=== PATIENT | female | born 1985 | race Hispanic/Latino ===

== ENCOUNTER → 2019-09-21 12:17 | Outpatient (CLI) | payer OTHER, SELFPAY ==
[2019-09-21 12:53] LABS: Hematocrit 38.4 % (36-46); Hemoglobin 13.2 g/dL (12.0-16.0); Mean Corpuscular HGB Conc 34.4 % (30-36); Mean Corpuscular Hemoglobin 26.3 PG (26-34); Mean Corpuscular Volume 76.3 fL (80-100); Platelet Count 411 X10^3/uL (150-400); Red Blood Cell Count 5.04 X10^6/uL (4.0-5.2); Red Cell Distribution Width 15.3 % (11.6-14.8); White Blood Cell Count 7.2 X10^3/uL (4.5-11.0)
[2019-09-21 13:38] LABS: Alanine Aminotransferase 52 IU/L (<35); Albumin 4.7 g/dL (3.5-5.0); Albumin Globulin Ratio 1.3 (1.0-2.8); Alkaline Phosphatase 120 U/L (38-126); Aspartate Aminotransferase 59 IU/L (14-36); BUN Creatinine Ratio 21.7 (6-22); Bilirubin Total 0.6 mg/dL (0.2-1.3); Blood Urea Nitrogen 13 mg/dL (7-17); Calcium 10.2 mg/dL (8.4-10.2); Carbon Dioxide 27 mmol/L (22-32); Chloride 100 mmol/L (98-107); Cholesterol 264 mg/dL (140-199); Estimated Glomerular Filt Rate > 60.0 mL/min (>60); Globulin 3.5 g/dL (1.7-4.1); Glucose 206 mg/dL (70-100); HDL Cholesterol 46 mg/dL (40-60); HEMOLYSIS < 15 (0-50); LDL Cholesterol Calculated 184 mg/dL (<100); Potassium 4.3 mmol/L (3.4-5.1); Sodium 139 mmol/L (137-145); Total Protein 8.2 g/dL (6.3-8.2); Triglycerides 170 mg/dL (35-150)
[2019-09-21 14:10] LABS: TSH w/ Reflex to FT4 3.29 uIU/mL (0.47-4.68)
== END ==
PROVIDERS: PCP Nurse Practitioner Family; Visit Provider Nurse Practitioner Family
DX: Z00.00 Encounter for general adult medical examination without abnormal findings (principal); Z13.6 Encounter for screening for cardiovascular disorders; F41.9 Anxiety disorder, unspecified
CPT/HCPCS: 36415; 80053; 80061; 84443; 85027

== ENCOUNTER → 2019-10-27 11:55 | Outpatient (CLI) | payer OTHER, SELFPAY | PROVIDERS: PCP Nurse Practitioner Family; Visit Provider Nurse Practitioner Family | DX: N89.8 Other specified noninflammatory disorders of vagina (principal); R10.2 Pelvic and perineal pain | CPT/HCPCS: 87210 ==

== ENCOUNTER → 2019-10-27 12:08 | Outpatient (CLI) | payer OTHER, SELFPAY ==
[2019-10-27 12:44] LABS: Hemoglobin 12.9 g/dL (12.0-16.0); Mean Corpuscular HGB Conc 33.2 % (30-36); Mean Corpuscular Hemoglobin 25.5 PG (26-34); Mean Corpuscular Volume 76.8 fL (80-100); Platelet Count 440 X10^3/uL (150-400); Red Blood Cell Count 5.08 X10^6/uL (4.0-5.2); Red Cell Distribution Width 16.3 % (11.6-14.8); White Blood Cell Count 8.1 X10^3/uL (4.5-11.0)
[2019-10-27 12:55] LABS: Hemoglobin A1C% w Est Avg Glu 8.7 % (4.0-6.0)
[2019-10-27 13:27] LABS: Alanine Aminotransferase 46 IU/L (<35); Albumin 4.5 g/dL (3.5-5.0); Albumin Globulin Ratio 1.3 (1.0-2.8); Alkaline Phosphatase 128 U/L (38-126); Aspartate Aminotransferase 45 IU/L (14-36); Bilirubin Total 0.3 mg/dL (0.2-1.3); Bilirubin Unconjugated 0.2 mg/dL (0.0-1.1); Globulin 3.5 g/dL (1.7-4.1); HEMOLYSIS < 15 (0-50)
[2019-10-31 07:17] LABS: ANA Screen, IFA NEGATIVE (NEGATIVE)
[2019-10-31 08:33] LABS: Hepatitis A Antibody IgM NONREACTIVE; Hepatitis Acute Panel Interp 0.01; Hepatitis B Core Antibody IgM NONREACTIVE; Hepatitis B Surface Antigen NONREACTIVE; Hepatitis C Antibody NONREACTIVE
== END ==
PROVIDERS: PCP Nurse Practitioner Family; Referring Provider Nurse Practitioner Family; Visit Provider Nurse Practitioner Family
DX: R94.5 Abnormal results of liver function studies (principal); R71.8 Other abnormality of red blood cells; R73.01 Impaired fasting glucose; N89.8 Other specified noninflammatory disorders of vagina; R10.2 Pelvic and perineal pain
CPT/HCPCS: 36415; 80074; 80076; 83036; 85027; 86038; 86255; 87210

== ENCOUNTER → 2019-11-16 13:44 | Outpatient (CLI) | payer OTHER, SELFPAY ==
--- NOTE | 2019-11-16 13:46 | DI.US.S_ITS ---
PROCEDURE: US ABDOMEN COMPLETE INDICATIONS: ELEVATED LIVER ENZYMES TECHNIQUE: Real-time scanning was performed of the abdominal and retroperitoneal organs, with image documentation. COMPARISON: None. FINDINGS: This study is limited by body habitus. Liver: The liver demonstrates normal size. The liver demonstrates generalized increased echogenicity. This decreases ultrasound sensitivity for detection of hepatic masses. Gallbladder: No findings of gallstones or sludge are seen. The gallbladder wall is not thickened, measuring 3 mm or less. No specific pericholecystic fluid is seen. The sonographic Duarte sign is negative. Biliary ducts: Intrahepatic bile ducts are non-dilated. Extrahepatic bile duct caliber measures 5 mm. Normal is 6-7 mm or less in diameter, or 10 mm or less post-cholecystectomy. Pancreas: Visualized portions of the pancreas are sonographically normal. Spleen: Spleen is normal in size and homogeneous in echotexture. Kidneys: Kidneys are normal in size and echotexture. Right kidney measures 11.7 cm long; left kidney measures 9.9 cm long. No hydronephrosis. Within the inferior collecting system on the left, there is a 6 mm nonobstructing renal stones seen. No solid masses. Aorta: Visualized aorta is normal in caliber at less than 3 cm. Iliacs: Proximal common iliac arteries are normal in caliber at less than 2.5 cm. IVC: Intrahepatic inferior vena cava is patent. Miscellaneous: No free abdominal fluid. IMPRESSION: Fatty liver infiltration. The gallbladder demonstrates a normal sonographic appearance. No biliary dilatation is seen. 6 mm nonobstructing left inferior renal stone seen. Dictated by: Marshall Lugo M.D. on 11/16/2019 at 14:36 Approved by: Marshall Lugo M.D. on 11/16/2019 at 14:37
== END ==
PROVIDERS: PCP Nurse Practitioner Family; Referring Provider Nurse Practitioner Family; Visit Provider Nurse Practitioner Family
DX: R94.5 Abnormal results of liver function studies (principal); N20.0 Calculus of kidney
CPT/HCPCS: 76700

== ENCOUNTER → 2019-12-01 10:44 | Outpatient (CLI) | payer OTHER, SELFPAY ==
--- NOTE | 2019-12-01 | DI.CT.S_ITS ---
PROCEDURE: CT ABDOMEN PELVIS WO CON INDICATIONS: KIDNEY STONES. RIGHT FLANK PAIN TECHNIQUE: Noncontrast 5 mm thick sections acquired from the diaphragms to the symphysis. 5 mm thick coronal and sagittal reformats were then performed. For radiation dose reduction, the following was used: automated exposure control, adjustment of mA and/or kV according to patient size. COMPARISON: [facility], , US ABDOMEN COMPLETE, 11/16/2019, 14:01. FINDINGS: Image quality: Excellent. Lung bases: Lung bases are clear. Heart size is normal. A small hiatal hernia is incidentally noted. Urinary system: Both kidneys are normal in size. No kidney stones. No hydronephrosis or perinephric fat stranding. Both ureters appear non-dilated throughout their expected courses. Bladder wall thickness is normal; no calcified bladder stones. Other solid organs: Liver is normal in size. Diffuse fatty liver infiltration is noted. Gallbladder wall does not appear thickened. Pancreas is normal in contours. Spleen is normal in size. No adrenal nodules. Peritoneum and bowel: Unenhanced bowel loops demonstrate normal wall thickness and caliber. No free fluid or air. Incidental note is made of a normal-appearing appendix. Nodes and vessels: No retroperitoneal or mesenteric adenopathy by size criteria. Aorta and inferior vena cava are normal in caliber. Abdominal wall: No ventral hernias. Pelvis: No free pelvic fluid. No inguinal hernias or adenopathy. The uterus and ovaries demonstrate a normal, physiologic appearance. No adnexal masses are detected. Bones: No suspicious bony lesions. No vertebral body compression fractures. This patient has transitional lumbar anatomy. For the purposes of this examination, the level with the last pair of ribs is regarded to be T12. By this numbering scheme, the L5 level is transitional and highly sacralized. IMPRESSION: No kidney stones can be seen. The apparent left-sided kidney stones seen on the prior ultrasound are not confirmed on this study. The ultrasound appearance is regarded to be artifactual. No hydronephrosis or hydroureter can be seen on either side. Incidental note is made of: Small hiatal hernia Fatty liver infiltration Normal appearing appendix Transitional lumbar anatomy, with a highly sacralized L5 level Dictated by: Marshall Lugo M.D. on 12/01/2019 at 10:04 Approved by: Marshall Lugo M.D. on 12/01/2019 at 10:08
== END ==
PROVIDERS: PCP Nurse Practitioner Family; Referring Provider Specialist; Visit Provider Specialist
DX: N20.0 Calculus of kidney (principal); R10.9 Unspecified abdominal pain; K44.9 Diaphragmatic hernia without obstruction or gangrene; K76.0 Fatty (change of) liver, not elsewhere classified; M43.26 Fusion of spine, lumbar region
CPT/HCPCS: 74176

== ENCOUNTER → 2020-01-26 08:20 | Outpatient (CLI) | payer OTHER, SELFPAY ==
[2020-01-26 09:20] LABS: Hemoglobin A1C% w Est Avg Glu 6.9 % (4.0-6.0)
[2020-01-26 09:28] LABS: Hemoglobin 11.9 g/dL (12.0-16.0); Mean Corpuscular Hemoglobin 25.4 PG (26-34); Mean Corpuscular Volume 76.9 fL (80-100); Platelet Count 377 X10^3/uL (150-400); Red Blood Cell Count 4.68 X10^6/uL (4.0-5.2); Red Cell Distribution Width 15.7 % (11.6-14.8); White Blood Cell Count 5.8 X10^3/uL (4.5-11.0)
== END ==
PROVIDERS: PCP Nurse Practitioner Family; Referring Provider Obstetrics & Gynecology; Visit Provider Obstetrics & Gynecology
DX: Z01.818 Encounter for other preprocedural examination (principal); E11.9 Type 2 diabetes mellitus without complications
CPT/HCPCS: 36415; 83036; 85027

== ENCOUNTER → 2020-01-31 15:00 | Outpatient (CLI) | payer OTHER, SELFPAY ==
[2020-02-01 10:59] LABS: COVID19 Sendout Not Detected (Not Detect)
== END ==
PROVIDERS: PCP Nurse Practitioner Family; Visit Provider Registered Nurse
DX: Z01.812 Encounter for preprocedural laboratory examination (principal)
CPT/HCPCS: 87635

== ENCOUNTER 2020-02-03 06:33 | Day surgery (SDC) | payer OTHER, SELFPAY ==
[2020-01-31 10:20] VITALS: BMI 34.2
[2020-02-03] VITALS (8 sets, daily range): BP systolic 97–116; BP diastolic 58–76; PULSE 87–95; RESP 10–20; TEMP 36–36.1; O2SAT 94–100; BMI 34.2
--- NOTE | 2020-02-03 | PATH_ITS ---
[facility] Accession Number: [id number] . 01 Material submitted: . PART A: cervix - ECTO-ENDOCERVIX PART B: endocervix - ENDOCERVICAL CURETTINGS . 02 Diagnosis: A. Ecto-Endocervix, LEEP Biopsy: One small region of atypical squamous mucosa concerning for possible high grade squamous intraepithelial lesion / THAIS-2 and separate regions of mild involvement by low-grade squamous intraepithelial lesion/THAIS-1. The apparent endocervical margin is negative for dysplasia. The apparent ectocervical margin is negative for dysplasia. No invasive tumor identified. . B. Endocervical Curettings: Endocervical tissue fragments; negative for glandular dysplasia or malignancy. [facility] 02/07/2020 1427 Local . 02 Comment: The biopsy results correlate with Pap smear [id number]. . 02 Electronically signed: . Jyoti Pitts MD, Pathologist NPI- [id number] . 01 Gross description: . (A) Received in formalin, labeled ecto-endocervix, is an intact unoriented cervical excision (diameter-2.0 x 1.6 cm, 0.6 cm in depth) with wheeler-white smooth shiny mucosa. No nodules, masses or lesions are identified. The possible endocervical margin is inked orange and the possible ectocervical and stromal margins are inked blue. Radially sectioned and entirely submitted in cassettes A1-A4. (B) Received in formalin, labeled endocervical curettings, are multiple fragments of wheeler tissue (0.7 x 0.3 by less than 0.1 cm in aggregate). Filtered and entirely submitted in cassette B1. ([place]:[facility] [place] [id number]) /MRV 02/04/2020 1118 Local . 02 Pathologist provided ICD-10: N87.1 . 02 CPT . 728504, 474117 Performed at: 01 [facility] [address] [id number] MD Vinnie Khan MD Phone: [phone] Performed at: 02 [facility] [address] [place], [place] [id number] MD Alysia Price MD Phone: [phone]
[2020-02-03] MEDS: LACTATED RINGERS 1,000 ML 42 ML IV (07:19)
--- NOTE | 2020-02-03 07:30 | SUR.PREOP ---
Pt voided, unable to do urine preg test, anesthesia informed, Pt denies any risk of
--- NOTE | 2020-02-03 07:42 | PM.PREOP ---
Pre-operative Note COVID-19 COVID-19 status: Negative Result date/Date tested (Pos, Neg/Pending): 01/31/20 Interval Note History & Physical reviewed/Exam performed by Physician: Yes Changes to H&P: No
--- NOTE | 2020-02-03 08:13 | SUR.OPER ---
Lithotomy on padded OR bed, head on pillow, arms secured on padded arm boards at <90 degrees abduction. Legs secured in padded yellow fins stirrups.
[2020-02-03] MEDS: LIDOCAINE 1% W/EPI 20 ML INJ (08:18)
[2020-02-03] MEDS: ACETIC ACID 500 ML IRRIG 20 ML TOP (08:20)
--- NOTE | 2020-02-03 08:53 | SUR.OPER ---
Jazmin's applied to cerviix per Dr. Linda at end of case.
--- NOTE | 2020-02-03 08:59 | PM.OP.1 ---
Operative Date/Time/Diagnoses Date of procedure: 02/03/20 Time of procedure: 08:45 Pre-op diagnosis: THAIS 3 of cervix Post-op diagnosis: same Procedure & Clinicians Procedure: colposcopy, LEEP procedure of cervix Same procedure as scheduled: Yes Indications: THAIS 3 of cervix Surgeon: Fatimah Linda Click Yes if Unassisted: Yes Anesthesia Type: General Operative Notes Closure Type: not applicable Specimen(s): other (ecto/endoervical specimen) Estimated Blood Loss (mL): 3 Procedure in detail: IV fluids: 900 ml crystalloid She was transferred to the operating room. After an adequate level of general anesthesia was obtained, she placed service in the dorsal lithotomy position. Time-out was taken and the patient procedure was identified. Normal external genitalia noted. Speculum was placed. Colposcope used and vagina and cervix visualized. Vagina without lesions. Cervix without lesions or gross abnormalities. Dilute acetic acid placed to the cervix and upper vagina. There were no vaginal changes with the acetic acid. There was an irregular area of mild aceto-white change with irregular borders and slight punctation at 11:00 a.m. near the cervical os extending onto the ectocervix. There was also some mild aceto-white change with faint punctation from 5-8 o'clock at the cervical os in the transformation zone and some increased redness extending from this area on the ectocervix. An Allis was placed to the anterior cervix for counter traction. Approximately 10 mL of 1% lidocaine with epinephrine was circumferentially infiltrated over the cervix. The Allis clamp was then removed. A 20 mm x 10 mm loop was then placed on the Bovie and with the settings on 60 pure cut a pass was made from from right to left, through the anterior and posterior ectocervix passing through the cervical os, to include the entire visualized area. ECC then performed and sent as separate specimen. Using a 5 mm ball tip on the Bovie and settings on the Bovie changed to coagulation, a few areas of light bleeding were coagulated. Hemostasis obtained. A paste of Monsel's solution was then placed in the excisional bed to help assure continued hemostasis. She tolerated the procedure well. Complications: none Post-operative Condition: stable Disposition: PACU Plan for aftercare: Discharge home. Nothing in the vagina for 3 weeks. Follow-up appt in 3 weeks
== END 2020-02-03 09:35 | disposition home or self-care (01) ==
PROVIDERS: PCP Nurse Practitioner Family; Referring Provider Nurse Practitioner Family; Visit Provider Obstetrics & Gynecology
PROC: 0UBC7ZZ Excision of Cervix, Via Natural or Artificial Opening (ICD-10-PCS; CPT 57522; principal; 2020-02-03 07:45)
DX: N87.1 Moderate cervical dysplasia (principal); E11.9 Type 2 diabetes mellitus without complications; Z79.84 Long term (current) use of oral hypoglycemic drugs; E78.5 Hyperlipidemia, unspecified; K21.9 Gastro-esophageal reflux disease without esophagitis; F41.9 Anxiety disorder, unspecified; G47.00 Insomnia, unspecified
CPT/HCPCS: 57460; J1885; J2250; J2405; J2704; J3010

== ENCOUNTER → 2020-02-08 10:53 | Outpatient (CLI) | payer OTHER, SELFPAY ==
[2020-02-08 11:46] LABS: Add Manual Diff / Slide Review NO; Basophils Absolute Auto 100 /uL (0-100); Basophils Percent Auto 1.1 % (0-2); Eosinophils Absolute Auto 200 /uL (0-450); Eosinophils Percent Auto 2.9 % (2-4); Hematocrit 35.6 % (36-46); Hemoglobin 11.9 g/dL (12.0-16.0); Lymphocytes Absolute Auto 1000 /uL (1100-4500); Lymphocytes Percent Auto 16.7 % (25-40); Mean Corpuscular HGB Conc 33.4 % (30-36); Mean Corpuscular Hemoglobin 25.3 PG (26-34); Mean Corpuscular Volume 75.7 fL (80-100); Monocytes Absolute Auto 600 /uL (0-900); Monocytes Percent Auto 10.2 % (3-14); Neutrophils Absolute Auto 4300 /uL (1500-7000); Neutrophils Percent Auto 69.1 % (50-75); Platelet Count 364 X10^3/uL (150-400); Red Cell Distribution Width 15.3 % (11.6-14.8); White Blood Cell Count 6.2 X10^3/uL (4.5-11.0)
[2020-02-08 12:02] LABS: Alanine Aminotransferase 43 IU/L (<35); Albumin 4.5 g/dL (3.5-5.0); Albumin Globulin Ratio 1.3 (1.0-2.8); Alkaline Phosphatase 82 U/L (38-126); Aspartate Aminotransferase 41 IU/L (14-36); BUN Creatinine Ratio 16.1 (6-22); Bilirubin Total 0.6 mg/dL (0.2-1.3); Blood Urea Nitrogen 9 mg/dL (7-17); Calcium 9.8 mg/dL (8.4-10.2); Carbon Dioxide 23 mmol/L (22-32); Chloride 104 mmol/L (98-107); Estimated Glomerular Filt Rate > 60.0 mL/min (>60); Globulin 3.6 g/dL (1.7-4.1); Glucose 120 mg/dL (70-100); HEMOLYSIS < 15 (0-50); Sodium 137 mmol/L (137-145); Total Protein 8.1 g/dL (6.3-8.2)
== END ==
PROVIDERS: PCP Nurse Practitioner Family; Referring Provider Obstetrics & Gynecology; Visit Provider Obstetrics & Gynecology
DX: R11.2 Nausea with vomiting, unspecified (principal)
CPT/HCPCS: 36415; 80053; 85025

== ENCOUNTER → 2020-12-07 10:47 | Outpatient (CLI) | payer OTHER, SELFPAY ==
[2020-12-07 11:33] LABS: Alanine Aminotransferase 113 IU/L (<35); Albumin 4.5 g/dL (3.5-5.0); Albumin Globulin Ratio 1.1 (1.0-2.8); Alkaline Phosphatase 127 U/L (38-126); Aspartate Aminotransferase 93 IU/L (14-36); BUN Creatinine Ratio 24.1 (6-22); Bilirubin Total 0.2 mg/dL (0.2-1.3); Blood Urea Nitrogen 13 mg/dL (7-17); Calcium 9.9 mg/dL (8.4-10.2); Carbon Dioxide 24 mmol/L (22-32); Chloride 103 mmol/L (98-107); Cholesterol 275 mg/dL (140-199); Estimated Glomerular Filt Rate > 60.0 mL/min (>60); Glucose 245 mg/dL (70-100); HDL Cholesterol 50 mg/dL (40-60); HEMOLYSIS < 15 (0-50); LDL Cholesterol Calculated 192 mg/dL (<100); Sodium 137 mmol/L (137-145); Total Protein 8.5 g/dL (6.3-8.2); Triglycerides 163 mg/dL (35-150)
[2020-12-07 11:54] LABS: Hematocrit 41.2 % (36-46); Hemoglobin 13.5 g/dL (12.0-16.0); Mean Corpuscular HGB Conc 32.9 % (30-36); Mean Corpuscular Hemoglobin 25.9 PG (26-34); Mean Corpuscular Volume 78.8 fL (80-100); Platelet Count 451 X10^3/uL (150-400); Red Blood Cell Count 5.24 X10^6/uL (4.0-5.2); Red Cell Distribution Width 15.6 % (11.6-14.8); White Blood Cell Count 7.4 X10^3/uL (4.5-11.0)
[2020-12-07 12:21] LABS: Hemoglobin A1C% w Est Avg Glu 8.8 % (4.0-6.0)
[2020-12-07 13:08] LABS: Appearance Urine UA CLEAR; Bilirubin Urine UA NEGATIVE (NEGATIVE); Color Urine UA YELLOW; Glucose Urine UA NEGATIVE (Negative); Ketones Urine UA TRACE (NEGATIVE); Leukocyte Esterase Urine UA NEGATIVE (NEGATIVE); Nitrite Urine UA NEGATIVE (Negative); Occult Blood Urine UA TRACE-LYSED (Negative); Protein Urine UA TRACE (Negative); Specific Gravity Urine UA >=1.030 (1.000-1.035); Urobilinogen Urine UA 0.2 E.U./dL (0.2)
[2020-12-07 13:19] LABS: pH Urine UA 5.5 (4.5-8.0)
[2020-12-07 13:45] LABS: Amorphous Sediment Urine 1+; Bacteria Urine Few (2-10); Culture Indicated Urine Cult Not Indicated; Mucus Urine 1+ (Negative); RBC Urine 0-1/HPF (0-5/HPF); Squamous Epithelial Cell Urine 1-5 /HPF (0-5/HPF); WBC Urine 0-1/HPF (0-5/HPF)
== END ==
PROVIDERS: PCP Nurse Practitioner Family; Referring Provider Nurse Practitioner Family; Visit Provider Nurse Practitioner Family
DX: Z00.00 Encounter for general adult medical examination without abnormal findings (principal); E11.9 Type 2 diabetes mellitus without complications; E78.2 Mixed hyperlipidemia; R79.89 Other specified abnormal findings of blood chemistry; R10.30 Lower abdominal pain, unspecified
CPT/HCPCS: 36415; 80053; 80061; 81001; 83036; 85027

== ENCOUNTER → 2020-12-14 09:04 | Outpatient (CLI) | payer OTHER, SELFPAY ==
--- NOTE | 2020-12-14 09:05 | DI.US.S_ITS ---
PROCEDURE: US PELVIC COMPLETE INDICATIONS: PAIN TECHNIQUE: Real-time scanning was performed of the pelvic organs, with image documentation. Additional endovaginal scanning was necessary due to incomplete visualization of the adnexal and endometrial structures by transabdominal scanning. COMPARISON: None. FINDINGS: Uterus: Uterus is anteverted and normal in size at 4.1 x 5.1 x 8.5 cm. The endometrium measures 6.4 mm in combined thickness. Ovaries: Appear normal in size and echotexture. Other: No pathologic free abdominal or pelvic fluid. IMPRESSION: No source of pain is identified. Anteverted uterus, normal endometrial lining thickness. Ovaries free of cystic or solid mass or abnormal enlargement. Dictated by: Jesus Mukherjee M.D. on 12/14/2020 at 12:12 Approved by: Jesus Mukherjee M.D. on 12/14/2020 at 12:13
[2020-12-14 13:07] LABS: HEMOLYSIS < 15 (0-50); Iron 47 ug/dL (37-170)
[2020-12-14 13:18] LABS: Percent Iron Saturation 13 % (15-50); Total Iron Binding Capacity 364 ug/dL (265-497); Transferrin 311 mg/dL (206-381)
[2020-12-14 13:40] LABS: TSH w/ Reflex to FT4 2.21 uIU/mL (0.47-4.68)
[2020-12-14 13:43] LABS: Ferritin 62 ng/mL (6-137)
[2020-12-14 13:57] LABS: Vitamin B12 982 pg/mL (239-931)
[2020-12-18 17:12] LABS: Albumin 3.4 g/dL (2.9-4.4); Alpha 1 Globulin 0.3 g/dL (0.0-0.4); Alpha 2 Globulin 1.1 g/dL (0.4-1.0); Beta 1 Globulin 1.4 g/dL (0.7-1.3); Gamma Globulin 1.3 g/dL (0.4-1.8); Immunoglobulin A 324 mg/dL (87-352); Immunoglobulin G 1231 mg/dL (586-1602); Immunoglobulin M 101 mg/dL (26-217); Protein, Total 7.5 g/dL (6.0-8.5)
--- NOTE | 2021-01-08 14:43 | ONC.MSW ---
Description: New Referral Navigation Reason for Referral: Abnormality of plasma protein, unspecified Activity: Reviewed EMR, referral, for medical status, acuity, and immediate needs. Forwarded to scheduling for next available consult time, non-urgent.
== END ==
PROVIDERS: PCP Nurse Practitioner Family; Referring Provider Nurse Practitioner Family; Visit Provider Nurse Practitioner Family
DX: R10.2 Pelvic and perineal pain (principal); N85.4 Malposition of uterus; R71.8 Other abnormality of red blood cells; R79.89 Other specified abnormal findings of blood chemistry; R53.83 Other fatigue; R77.9 Abnormality of plasma protein, unspecified; K76.0 Fatty (change of) liver, not elsewhere classified; R74.8 Abnormal levels of other serum enzymes
CPT/HCPCS: 36415; 76830; 76856; 82607; 82728; 83540; 83550; 83915; 84155; 84165; 84443

== ENCOUNTER → 2021-01-18 10:53 | Outpatient (CLI) | payer OTHER, SELFPAY ==
[2021-01-18 10:58] LABS: Bacteria Urine None Seen; RBC Urine None Seen (0-5/HPF); WBC Urine None Seen (0-5/HPF)
[2021-01-18 11:59] LABS: Erythrocyte Sedimentation Rate 10 MM/HR (0-20)
[2021-01-18 12:08] LABS: HEMOLYSIS < 15 (0-50); Iron 45 ug/dL (37-170)
[2021-01-18 12:16] LABS: Appearance Urine UA CLEAR; Bilirubin Urine UA NEGATIVE (NEGATIVE); Color Urine UA YELLOW; Glucose Urine UA TRACE g/dL (Negative); Ketones Urine UA NEGATIVE (NEGATIVE); Leukocyte Esterase Urine UA NEGATIVE (NEGATIVE); Nitrite Urine UA NEGATIVE (Negative); Occult Blood Urine UA NEGATIVE (Negative); Protein Urine UA NEGATIVE (Negative); Specific Gravity Urine UA >=1.030 (1.000-1.035); Urobilinogen Urine UA 0.2 E.U./dL (0.2)
[2021-01-18 12:19] LABS: Percent Iron Saturation 12 % (15-50); Total Iron Binding Capacity 361 ug/dL (265-497); Transferrin 300 mg/dL (206-381)
[2021-01-18 12:28] LABS: Amorphous Sediment Urine 1+
[2021-01-18 12:41] LABS: Ferritin 21 ng/mL (6-137)
[2021-01-18 16:32] LABS: Hepatitis B Surface Antigen NEGATIVE s/c (NEGATIVE)
[2021-01-18 16:42] LABS: Hep C Virus Ab w/Reflex Quant NEGATIVE s/c (NEGATIVE)
[2021-01-19 04:09] LABS: Alpha 1 Anti Trypsin 141 mg/dL (100-188); Ceruloplasmin 34.6 mg/dL (19.0-39.0)
[2021-01-20 14:14] LABS: ANA Screen, IFA Negative (.)
[2021-01-20 14:45] LABS: Smooth Muscle Antibody 27 Units (0-19)
== END ==
PROVIDERS: PCP Nurse Practitioner Family; Referring Provider Internal Medicine Gastroenterology; Visit Provider Internal Medicine Gastroenterology
DX: R74.01 Elevation of levels of liver transaminase levels (principal); R80.9 Proteinuria, unspecified
CPT/HCPCS: 36415; 81001; 82103; 82390; 82728; 83516; 83540; 83550; 85651; 86038; 86803; 87340

== ENCOUNTER → 2021-06-19 15:02 | Outpatient (CLI) | payer OTHER, SELFPAY ==
[2021-06-19 15:33] LABS: Hematocrit 41.8 % (36-46); Hemoglobin 13.7 g/dL (12.0-16.0); Mean Corpuscular HGB Conc 32.8 % (30-36); Mean Corpuscular Hemoglobin 25.5 PG (26-34); Mean Corpuscular Volume 77.5 fL (80-100); Platelet Count 390 X10^3/uL (150-400); Red Blood Cell Count 5.39 X10^6/uL (4.0-5.2); Red Cell Distribution Width 15.7 % (11.6-14.8); White Blood Cell Count 8.2 X10^3/uL (4.5-11.0)
[2021-06-19 15:59] LABS: Alanine Aminotransferase 106 IU/L (<35); Albumin 4.6 g/dL (3.5-5.0); Albumin Globulin Ratio 1.2 (1.0-2.8); Alkaline Phosphatase 120 U/L (38-126); Aspartate Aminotransferase 84 IU/L (14-36); BUN Creatinine Ratio 18.8 (6-22); Bilirubin Total 0.3 mg/dL (0.2-1.3); Blood Urea Nitrogen 9 mg/dL (7-17); Calcium 9.9 mg/dL (8.4-10.2); Carbon Dioxide 25 mmol/L (22-32); Chloride 101 mmol/L (98-107); Estimated Glomerular Filt Rate > 60.0 mL/min (>60); Globulin 3.7 g/dL (1.7-4.1); Glucose 283 mg/dL (70-100); HEMOLYSIS < 15 (0-50); Potassium 4.1 mmol/L (3.4-5.1); Sodium 135 mmol/L (137-145); Total Protein 8.3 g/dL (6.3-8.2)
[2021-06-19 16:11] LABS: Hemoglobin A1C% w Est Avg Glu 9.7 % (4.0-6.0)
== END ==
PROVIDERS: PCP Nurse Practitioner Family; Referring Provider Nurse Practitioner Family; Visit Provider Nurse Practitioner Family
DX: E11.9 Type 2 diabetes mellitus without complications (principal)
CPT/HCPCS: 36415; 80053; 83036; 85027

== ENCOUNTER → 2022-01-15 16:41 | Outpatient (CLI) | payer OTHER, SELFPAY ==
[2022-01-15 17:49] LABS: Hemoglobin A1C% w Est Avg Glu 11.8 % (4.0-6.0)
[2022-01-15 17:51] LABS: Alanine Aminotransferase 63 IU/L (<35); Albumin 4.7 g/dL (3.5-5.0); Albumin Globulin Ratio 1.1 (1.0-2.8); Alkaline Phosphatase 128 U/L (38-126); Aspartate Aminotransferase 56 IU/L (14-36); BUN Creatinine Ratio 20.8 (6-22); Bilirubin Total 0.5 mg/dL (0.2-1.3); Blood Urea Nitrogen 10 mg/dL (7-17); Calcium 9.8 mg/dL (8.4-10.2); Carbon Dioxide 24 mmol/L (22-32); Chloride 100 mmol/L (98-107); Estimated Glomerular Filt Rate > 60 mL/min (>60); Globulin 4.2 g/dL (1.7-4.1); Glucose 285 mg/dL (70-100); HEMOLYSIS < 15 (0-50); Sodium 135 mmol/L (137-145); Total Protein 8.9 g/dL (6.3-8.2)
[2022-01-15 17:52] LABS: Hemoglobin 14.2 g/dL (12.0-16.0); Mean Corpuscular HGB Conc 33.9 % (30-36); Mean Corpuscular Hemoglobin 26.2 PG (26-34); Mean Corpuscular Volume 77.4 fL (80-100); Platelet Count 382 X10^3/uL (150-400); Red Blood Cell Count 5.42 X10^6/uL (4.0-5.2); Red Cell Distribution Width 16.2 % (11.6-14.8); White Blood Cell Count 8.9 X10^3/uL (4.5-11.0)
[2022-01-15 18:21] LABS: TSH w/ Reflex to FT4 2.92 uIU/mL (0.47-4.68)
[2022-01-15 18:41] LABS: Creatinine Urine Random 99.7 mg/dL
[2022-01-15 18:45] LABS: Microalbumin Urine Random 3.2 mg/dL (0-1.6)
== END ==
PROVIDERS: PCP Registered Nurse Diabetes Educator; Referring Provider Registered Nurse Diabetes Educator; Visit Provider Registered Nurse Diabetes Educator
DX: E11.9 Type 2 diabetes mellitus without complications (principal); F32.1 Major depressive disorder, single episode, moderate; F41.9 Anxiety disorder, unspecified; R79.89 Other specified abnormal findings of blood chemistry
CPT/HCPCS: 36415; 80053; 82043; 82570; 83036; 84443; 85027

== ENCOUNTER → 2022-04-11 12:29 | Outpatient (CLI) | payer OTHER, SELFPAY ==
[2022-04-11 13:18] LABS: COVID19 -Nasal RAPID POSITIVE (Negative)
== END ==
PROVIDERS: PCP Registered Nurse Diabetes Educator; Visit Provider Registered Nurse Diabetes Educator
DX: U07.1 COVID-19 (principal)
CPT/HCPCS: 87635

== ENCOUNTER → 2023-01-13 12:54 | Outpatient (CLI) | payer OTHER, SELFPAY ==
[2023-01-13 13:39] LABS: Hematocrit 37.2 % (36-46); Hemoglobin 12.5 g/dL (12.0-16.0); Mean Corpuscular HGB Conc 33.7 % (30-36); Mean Corpuscular Hemoglobin 25.2 PG (26-34); Mean Corpuscular Volume 74.7 fL (80-100); Platelet Count 503 X10^3/uL (150-400); Red Blood Cell Count 4.98 X10^6/uL (4.0-5.2); Red Cell Distribution Width 17.4 % (11.6-14.8); White Blood Cell Count 7.9 X10^3/uL (4.5-11.0)
[2023-01-13 14:01] LABS: Alanine Aminotransferase 56 IU/L (<35); Albumin 4.3 g/dL (3.5-5.0); Albumin Globulin Ratio 1.2 (1.0-2.8); Alkaline Phosphatase 112 U/L (38-126); Aspartate Aminotransferase 56 IU/L (14-36); BUN Creatinine Ratio 20.3 (6-22); Bilirubin Total 0.7 mg/dL (0.2-1.3); Blood Urea Nitrogen 12 mg/dL (7-17); Calcium 9.8 mg/dL (8.4-10.2); Carbon Dioxide 22 mmol/L (22-32); Chloride 103 mmol/L (98-107); Cholesterol 241 mg/dL (140-199); Estimated Glomerular Filt Rate > 60 mL/min (>60); Globulin 3.6 g/dL (1.7-4.1); Glucose 159 mg/dL (70-100); HDL Cholesterol 50 mg/dL (40-60); HEMOLYSIS < 15 (0-50); LDL Cholesterol Calculated 167 mg/dL (<100); Potassium 3.8 mmol/L (3.4-5.1); Sodium 137 mmol/L (137-145); Total Protein 7.9 g/dL (6.3-8.2); Triglycerides 118 mg/dL (35-150)
[2023-01-13 14:27] LABS: TSH w/ Reflex to FT4 2.28 uIU/mL (0.47-4.68)
[2023-01-14 08:35] LABS: x Labcorp Estim. Avg Glu (eAG) 203 mg/dL (.); x Labcorp Hemoglobin A1c 8.7 % (4.8-5.6)
== END ==
PROVIDERS: PCP Registered Nurse Diabetes Educator; Referring Provider Registered Nurse Diabetes Educator; Visit Provider Registered Nurse Diabetes Educator
DX: E11.65 Type 2 diabetes mellitus with hyperglycemia (principal); E11.9 Type 2 diabetes mellitus without complications; E78.2 Mixed hyperlipidemia; K76.0 Fatty (change of) liver, not elsewhere classified; R79.89 Other specified abnormal findings of blood chemistry
CPT/HCPCS: 36415; 80053; 80061; 82043; 82570; 83036; 84443; 85027

== ENCOUNTER 2023-01-14 12:49 | Emergency (ER) | payer OTHER, SELFPAY ==
[2023-01-14 12:51] VITALS: BP 124/72; PULSE 108; RESP 17; TEMP 37.1; O2SAT 98; BMI 34.0
--- NOTE | 2023-01-14 12:54 | DI.RAD.S_ITS ---
PROCEDURE: XR CHEST 1V INDICATIONS: chest pain TECHNIQUE: One view of the chest was acquired. COMPARISON: None. FINDINGS: Surgical changes and devices: None. Lungs and pleura: Lungs are clear. No pleural effusions or pneumothorax. Mediastinum: Mediastinal contours appear normal. Heart size is normal. Bones and chest wall: No suspicious bony lesions. Overlying soft tissues appear unremarkable. IMPRESSION: No acute cardiopulmonary disease process. Dictated by: Sylvie Pierre MD, PhD on 01/14/2023 at 13:28 Approved by: Sylvie Pierre MD, PhD on 01/14/2023 at 13:29
[2023-01-14 13:20] LABS: Add Manual Diff / Slide Review NO; Basophils Absolute Auto 100 /uL (0-100); Basophils Percent Auto 1.2 % (0-2); Eosinophils Absolute Auto 100 /uL (0-450); Eosinophils Percent Auto 1.7 % (2-4); Hematocrit 36.8 % (36-46); Hemoglobin 12.2 g/dL (12.0-16.0); Lymphocytes Absolute Auto 2000 /uL (1100-4500); Lymphocytes Percent Auto 26.3 % (25-40); Mean Corpuscular HGB Conc 33.1 % (30-36); Mean Corpuscular Hemoglobin 24.9 PG (26-34); Mean Corpuscular Volume 75.2 fL (80-100); Monocytes Absolute Auto 500 /uL (0-900); Monocytes Percent Auto 6.3 % (3-14); Neutrophils Absolute Auto 5000 /uL (1500-7000); Neutrophils Percent Auto 64.5 % (50-75); Platelet Count 492 X10^3/uL (150-400); Red Blood Cell Count 4.89 X10^6/uL (4.0-5.2); Red Cell Distribution Width 17.2 % (11.6-14.8); White Blood Cell Count 7.7 X10^3/uL (4.5-11.0)
[2023-01-14 13:24] LABS: INR 1.1 (0.9-1.3); Prothrombin Time 12.3 SECONDS (10.1-12.7)
[2023-01-14 13:27] LABS: PTT Partial Thromboplastin Tim 27 SECONDS (26-36)
[2023-01-14 13:29] LABS: Alanine Aminotransferase 51 IU/L (<35); Albumin 4.4 g/dL (3.5-5.0); Albumin Globulin Ratio 1.2 (1.0-2.8); Alkaline Phosphatase 96 U/L (38-126); Aspartate Aminotransferase 43 IU/L (14-36); BUN Creatinine Ratio 11.5 (6-22); Bilirubin Total 0.4 mg/dL (0.2-1.3); Blood Urea Nitrogen 6 mg/dL (7-17); Calcium 9.2 mg/dL (8.4-10.2); Carbon Dioxide 21 mmol/L (22-32); Chloride 103 mmol/L (98-107); Creatine Kinase 35 U/L (30-135); Estimated Glomerular Filt Rate > 60 mL/min (>60); Globulin 3.8 g/dL (1.7-4.1); Glucose 182 mg/dL (70-100); HEMOLYSIS < 15 (0-50); Lipase 87 U/L (23-300); Magnesium 1.7 mg/dL (1.6-2.3); Potassium 3.4 mmol/L (3.4-5.1); Sodium 136 mmol/L (137-145); Total Protein 8.2 g/dL (6.3-8.2)
[2023-01-14 13:40] LABS: Troponin I < 0.012 ng/mL (0.01-0.034)
--- NOTE | 2023-01-14 14:58 | ED_ITS ---
HPI - General Adult General Chief complaint: Arrhythmia/Palpitations Stated complaint: feels like heart is being stepped on, chest pain Time Seen by Provider: 01/14/23 14:44 Source: patient Mode of arrival: Ambulatory History of Present Illness HPI narrative: Patient is a 38-year-old female who is here for evaluation of episodes that she is been having over the past couple days where she states she feels like her heart is beating fast and having pressure. It lasts minutes and then goes away. She is not having any lightheadedness or shortness of breath with this. She is yet to be evaluated for this. She is a insulin-dependent diabetic. Has no change in her medications recently. At the time my evaluation she was not having any symptoms but she did state that she was having them in the waiting room. She did not have any symptoms during the time of the EKG. Related Data Previous Rx's Medication Instructions Recorded blood sugar diagnostic (Blood #50 ea 01/15/22 Glucose Test strips) blood-glucose meter #1 ea 01/15/22 lancets 30 gauge #100 ea 01/15/22 ibuprofen 600 mg tablet 600 mg PO Q6H PRN pain #20 tabs 04/11/22 trazodone 50 mg tablet 50 mg PO BEDTIME PRN sleep #90 tabs 04/11/22 semaglutide 0.25 mg or 0.5 mg (2 0.25 mg (0.4 mL) SUBCUT QWEEK #3 mL 10/24/22 mg/3 mL) subcutaneous pen injector (Ozempic) escitalopram oxalate 10 mg tablet 5 mg PO DAILY #90 tabs 11/06/22 (Lexapro) esomeprazole magnesium 20 mg 20 mg PO DAILY #90 caps 11/06/22 capsule,delayed release (Nexium) hydroxyzine pamoate 25 mg capsule 25 mg PO TID PRN anxiety, panic, 11/06/22 or itching #60 caps Allergies Allergy/AdvReac Type Severity Reaction Status Date / Time No Known Drug Allergies Allergy Verified 01/14/23 12:52 Review of Systems Constitutional Constitutional: Reports system reviewed and no additional complaints, except as documented Cardiovascular Cardiovascular: Reports system reviewed and no additional complaints, except as documented Respiratory Respiratory: Reports system reviewed and no additional complaints, except as documented Gastrointestinal Gastrointestinal: Reports system reviewed and no additional complaints, except as documented Musculoskeletal Musculoskeletal: Reports system reviewed and no additional complaints, except as documented Patient History Medical History Anxiety BMI 37.0-37.9, adult Chronic left hip pain Depression Diabetes type 2, uncontrolled Elevated fasting blood sugar (09/2019) Elevated liver function tests (09/2019) Elevated serum protein level (11/2020) Fatigue Fatty liver GERD (gastroesophageal reflux disease) (2008) Insomnia Microcytosis (10/2019) Mixed hyperlipidemia (09/2019) Pelvic pain (10/2020) Type 2 diabetes mellitus (09/2019) Vaginal odor Surgical History Status post LEEP (loop electrosurgical excision procedure) of cervix (~01/2020) Family History Unknown Uterus cancer Social History household members: friend(s) Smoking Status: Never smoker second hand exposure: No alcohol intake: never substance use type: does not use Smoking Status: Never smoker alcohol intake frequency: holidays/special occasions only Substance Use Type: does not use Exam Initial Vital Signs Initial Vital Signs: Vital Signs Temperature 98.7 F 01/14/23 12:51 Pulse Rate 108 H 01/14/23 12:51 Respiratory Rate 17 01/14/23 12:51 Blood Pressure 124/72 01/14/23 12:51 Pulse Oximetry 98 01/14/23 12:51 Oxygen Delivery Method Room Air 01/14/23 12:51 Const General: cooperative and comfortable Resp Effort & Inspection: normal respiratory effort Auscultation: clear to auscultation bilaterally Cardio Rate: regular rate Rhythm: regular rhythm GI Inspection: normal to inspection Skin General: no rashes or lesions noted Neuro General: patient alert, patient awake and moves all extremities Course Orders Ordered: ED Orders 01/14/23 12:54 XR chest 1V Stat EKG-12 Lead Stat 01/14/23 13:00 Complete Blood Count AUTO DIFF Stat Comprehensive Metabolic Panel Stat Lipase Stat Magnesium Stat PTT Partial Thromboplastin [place] Stat Prothrombin Time INR Stat Troponin & CK Cardiac Panel Stat Discontinued Medications Aspirin (Aspirin 81 Mg Chew Tab) 324 mg PO NOW ONE Stop: 01/14/23 12:55 Last Admin: 05/16/23 15:18 Dose: Not Given Vital Signs Vital signs: Vital Signs - 8 hr 01/14/23 12:51 Temperature 98.7 F Pulse Rate 108 H Respiratory Rate 17 Blood Pressure 124/72 Pulse Oximetry 98 Oxygen Delivery Method Room Air Medical Decision Making Lab Data Lab results reviewed: Yes I reviewed the patient's lab results. 01/14/23 13:00 01/14/23 13:00 Labs: Lab Results 01/14/23 01/14/23 01/14/23 Range/Units 13:00 13:00 13:00 WBC 7.7 (4.5-11.0) X10^3/uL RBC 4.89 (4.0-5.2) X10^6/uL Hgb 12.2 (12.0-16.0) g/dL Hct 36.8 (36-46) % MCV 75.2 L (80-100) fL MCH 24.9 L (26-34) PG MCHC 33.1 (30-36) % RDW 17.2 H (11.6-14.8) % Plt Count 492 H (150-400) X10^3/uL Neut % (Auto) 64.5 (50-75) % Lymph % (Auto) 26.3 (25-40) % [place] % (Auto) 6.3 (3-14) % Eos % (Auto) 1.7 L (2-4) % Baso % (Auto) 1.2 (0-2) % Neut # (Auto) 5000 (3704-6042) /uL Lymph # (Auto) 2000 (7086-3122) /uL [place] # (Auto) 500 (0-900) /uL Eos # (Auto) 100 (0-450) /uL Baso # (Auto) 100 (0-100) /uL PT 12.3 (10.1-12.7) SECONDS INR 1.1 (0.9-1.3) APTT 27 (26-36) SECONDS Sodium 136 L (137-145) mmol/L Potassium 3.4 (3.4-5.1) mmol/L Chloride 103 (98-107) mmol/L Carbon Dioxide 21 L (22-32) mmol/L BUN 6 L (7-17) mg/dL Creatinine 0.52 (0.52-1.04) mg/dL Estimated GFR > 60 (>60) mL/min BUN/Creatinine Ratio 11.5 (6-22) Glucose 182 H (70-100) mg/dL Calcium 9.2 (8.4-10.2) mg/dL Magnesium 1.7 (1.6-2.3) mg/dL Total Bilirubin 0.4 (0.2-1.3) mg/dL AST 43 H (14-36) IU/L ALT 51 H (<35) IU/L Alkaline Phosphatase 96 (38-126) U/L Total Creatine Kinase 35 (30-135) U/L CK-MB (CK-2) TNP CK-MB (CK-2) Rel Index TNP Troponin I < 0.012 (0.01-0.034) ng/mL Total Protein 8.2 (6.3-8.2) g/dL Albumin 4.4 (3.5-5.0) g/dL Globulin 3.8 (1.7-4.1) g/dL Albumin/Globulin Ratio 1.2 (1.0-2.8) Lipase 87 (23-300) U/L Imaging Data Chest x-ray: Radiologist's Impression: PROCEDURE:? XR CHEST 1V ? INDICATIONS:? chest pain ? TECHNIQUE:? One view of the chest was acquired.? ? COMPARISON:? None. ? FINDINGS:? ? Surgical changes and devices:? None.? ? Lungs and pleura:? Lungs are clear.? No pleural effusions or pneumothorax.? ? Mediastinum:? Mediastinal contours appear normal.? Heart size is normal.? ? Bones and chest wall:? No suspicious bony lesions.? Overlying soft tissues appear unremarkable.? ? IMPRESSION:? No acute cardiopulmonary disease process. ECG Data Attestation: I personally reviewed and interpreted this ECG as follows: Interpretation: Sinus rhythm Ventricular rate 96 Normal axis Normal QRS Normal QTC No ST T wave changes MDM Narrative Medical decision making narrative: Exam, labs, EKG and workup here in the emergency department is unremarkable. She was observed on the monitor for a period of time without any ectopy noted. Her EKG showed no signs of ectopy. Had a long discussion with her regarding her symptoms. We did discuss that she most likely is going to need a Holter monitor in could talk with her primary doctor about this. She was given specific return precautions. She expressed understanding and agreement. Discharge Plan Departure Patient Disposition: Home Clinical Impression: Heart palpitations Instructions: DI for Palpitations Activity Restrictions/Additional Instructions: Recommend that you continue to take all of your medications as directed. I also recommend that you talk with your primary doctor about the indications for a Holter monitor. Return to the emergency department for new or worsening symptoms like we discussed. Prescriptions: No Action (DME) lancets 30 gauge misc See Rx Instructions .Route Qty: 100 3RF Rx Instructions: test blood sugar once daily. (DME) blood-glucose meter Kit See Rx Instructions .Route Qty: 1 0RF Rx Instructions: use to test blood sugar once daily (DME) Blood Glucose Test Strip See Rx Instructions .Route Qty: 50 6RF Rx Instructions: use to test blood sugar once daily Ozempic 0.25 mg or 0.5 mg (2 mg/3 mL) pen injector 0.25 mg SUBCUT QWEEK Qty: 3 1RF Rx Instructions: for 4 weeks; then increase to 0.5 mg every week trazodone 50 mg tablet 50 mg PO BEDTIME PRN (Reason: sleep) Qty: 90 1RF Rx Instructions: If 1 tablet ineffective, may take 2 tabs at bedtime for sleep ibuprofen 600 mg tablet 600 mg PO Q6H PRN (Reason: pain) Qty: 20 0RF escitalopram oxalate [Lexapro] 10 mg tablet 5 mg PO DAILY Qty: 90 1RF Rx Instructions: After 4 days if no side effects increase to 1 tab daily, then after 4 more days increase to 1.5 tabs daily hydroxyzine pamoate 25 mg capsule 25 mg PO TID PRN (Reason: anxiety, panic, or itching) Qty: 60 1RF Rx Instructions: do not drive during therapy, may make drowsy esomeprazole magnesium [Nexium] 20 mg capsule,delayed release(DR/EC) 20 mg PO DAILY Qty: 90 1RF Referrals: Tyrone Haley ARNP [Primary Care Provider] - Stand Alone Forms: Patient Portal/API
[2023-01-14 15:40] VITALS: PULSE 85; RESP 14; O2SAT 98
[2023-01-14 15:42] VITALS: PULSE 85; RESP 14; O2SAT 97
[2023-01-14 15:55] VITALS: BP 113/65; PULSE 93; RESP 22; O2SAT 97
== END 2023-01-14 16:01 | disposition home or self-care (01) ==
PROVIDERS: Emergency Provider Emergency Medicine; PCP Registered Nurse Diabetes Educator
DX: R00.2 Palpitations (principal); R07.9 Chest pain, unspecified
CPT/HCPCS: 36415; 71045; 80053; 82550; 83690; 83735; 84484; 85025; 85610; 85730; 93005; 99283; 99284

== ENCOUNTER 2023-08-20 01:07 | Emergency (ER) | payer OTHER, SELFPAY ==
[2023-08-20 01:39] VITALS: BP 117/67; PULSE 112; RESP 18; TEMP 36.9; O2SAT 100; BMI 30.2
[2023-08-20 01:51] LABS: RBC Urine 10-30/HPF (0-5/HPF); WBC Urine 10-30/HPF (0-5/HPF)
[2023-08-20 01:52] LABS: Bacteria Urine Few (2-10); Culture Indicated Urine Specimen Cultured; Squamous Epithelial Cell Urine 1-5 /HPF (0-5/HPF)
--- NOTE | 2023-08-20 02:18 | ED_ITS ---
HPI - Female Genitourinary General Chief complaint: Urogenital-Female Stated complaint: blood in urine, abd pain Time Seen by Provider: 08/20/23 01:30 Source: patient Mode of arrival: Ambulatory History of Present Illness HPI Narrative: Patient presents to the ED with to 3 months of mild right lower quadrant abdominal pain. Tonight she noted dysuria urgency and frequency and hematuria which he does not normally experience. She says she is never had a urinary tract infection before. She felt like she had move her bowels not. She is not had fever but she has had nausea throughout the day. Related Data Previous Rx's Medication Instructions Recorded blood sugar diagnostic (Blood #50 ea 01/15/22 Glucose Test strips) blood-glucose meter #1 ea 01/15/22 lancets 30 gauge #100 ea 01/15/22 ibuprofen 600 mg tablet 600 mg PO Q6H PRN pain #20 tabs 04/11/22 trazodone 50 mg tablet 50 mg PO BEDTIME PRN sleep #90 tabs 04/11/22 hydroxyzine pamoate 25 mg capsule 25 mg PO TID PRN anxiety, panic, 11/06/22 or itching #60 caps rosuvastatin 5 mg tablet 5 mg PO DAILY #90 tabs 01/16/23 dulaglutide 4.5 mg/0.5 mL 4.5 mg (0.5 mL) SUBCUT QWEEK blood 08/15/23 subcutaneous pen injector sugar control #6 mL (Trulicity) esomeprazole magnesium 20 mg 20 mg PO DAILY #90 caps 08/15/23 capsule,delayed release (Nexium) nitrofurantoin macrocrystal 100 mg 100 mg PO BID #10 caps 08/20/23 capsule phenazopyridine 100 mg tablet 100 mg PO TID PRN pain 6 doses #7 08/20/23 tabs Allergies Allergy/AdvReac Type Severity Reaction Status Date / Time No Known Drug Allergies Allergy Verified 01/16/23 08:42 Patient History Medical History Anxiety BMI 37.0-37.9, adult Chronic left hip pain Depression Diabetes type 2, uncontrolled Dyslipidemia Elevated fasting blood sugar (09/2019) Elevated liver function tests (09/2019) Elevated serum protein level (11/2020) Fatigue Fatty liver GERD (gastroesophageal reflux disease) (2008) Insomnia Microcytosis (10/2019) Mixed hyperlipidemia (09/2019) Pelvic pain (10/2020) Type 2 diabetes mellitus (09/2019) Vaginal odor Surgical History Status post LEEP (loop electrosurgical excision procedure) of cervix (~01/2020) Family History Unknown Uterus cancer alcohol intake frequency: holidays/special occasions only Substance Use Type: does not use Exam Narrative Exam Narrative: GENERAL: Alert, cooperative and in no distress. HEAD: Atraumatic. Normocephalic. EYES: Sclera are clear without icterus. Extraocular movements are full. ENT: No rhinorrhea. NECK: Supple. Full range of motion. CARDIOVASCULAR: Normal rate and rhythm without murmur gallop or rub. RESPIRATORY: Clear to auscultation. Breath sounds equal bilaterally. No wheezes, rales, or rhonchi. GASTROINTESTINAL: Abdomen is soft. Mild right-sided lower abdominal tenderness mild suprapubic tenderness no guarding or mass. EXTREMITIES: No edema, full range of motion. No obvious trauma. BACK: Normal inspection, no CVA tenderness. NEURO: Nonfocal examination, normal speech, normal gait. SKIN: No rash or erythema of visible areas PSYCH: Normally oriented. Normal range of affect. Appropriate behavior Initial Vital Signs Initial Vital Signs: Vital Signs Temperature 98.4 F 08/20/23 01:39 Pulse Rate 112 H 08/20/23 01:39 Respiratory Rate 18 08/20/23 01:39 Blood Pressure 117/67 08/20/23 01:39 Pulse Oximetry 100 08/20/23 01:39 Oxygen Delivery Method Room Air 08/20/23 01:39 Course Orders Ordered: ED Orders 08/20/23 01:35 Urine Culture Stat Urine Microscopic Stat Vital Signs Vital signs: Vital Signs - 8 hr 08/20/23 01:39 Temperature 98.4 F Pulse Rate 112 H Respiratory Rate 18 Blood Pressure 117/67 Pulse Oximetry 100 Oxygen Delivery Method Room Air MDM - Female Genitourinary Lab Data Labs: Lab Results 08/20/23 Range/Units 01:35 Urine RBC 10-30/hpf H (0-5/HPF) Urine WBC 10-30/hpf H (0-5/HPF) Ur Squamous Epith Cells 1-5 /hpf (0-5/HPF) Urine Bacteria Few (2-10) H (None) Ur Culture Indicated? Specimen cultured Urine Dip Bedside Urine Glucose Negative Bedside Urine Bilirubin - Negative Bedside Urine Ketone - Negative Urine Specific [place] 1.030 Bedside Urine Occult Blood +++ Bedside Urine pH 6.0 Bedside Urine Protein ++ 100 Bedside Urine Urobilinogen - Negative Bedside Urine Nitrite - Negative Bedside Urine Leukocytes +/- 15 Esterase MDM Narrative Medical decision making narrative: Patient with a grossly positive urine and classic symptoms for UTI. No fever. Will treat symptomatically and recommend close outpatient follow-up. Careful return precautions given. Discharge Plan Departure Patient Disposition: Home Clinical Impression: Abdominal pain, Urinary tract infection Instructions: DI for Urinary Tract Infection (UTI), DI for Abdominal Pain-Adult Activity Restrictions/Additional Instructions: You clearly have evidence of a bladder infection and I recommend Pyridium 3 times a day as needed for discomfort. I also recommend Tylenol 1000 mg taken to gether with ibuprofen 600 mg every 6 hours by the clock. Drink plenty of fluids keep the urine dilute. Take the nitrofurantoin antibiotic twice daily for 5 days. This should clear up the infection. If abdominal pain is worse especially associated with fever or worsening pain or repeated vomiting, return to the ED for further evaluation. Otherwise, see your primary care provider in the next week or 2 to investigate this further as indicated. Prescriptions: New nitrofurantoin macrocrystal 100 mg capsule 100 mg PO BID Qty: 10 0RF Rx Instructions: must administer with a meal/food phenazopyridine 100 mg tablet 100 mg PO TID PRN (Reason: pain) Qty: 7 0RF No Action (DME) lancets 30 gauge misc See Rx Instructions .Route Qty: 100 3RF Rx Instructions: test blood sugar once daily. (DME) blood-glucose meter Kit See Rx Instructions .Route Qty: 1 0RF Rx Instructions: use to test blood sugar once daily (DME) Blood Glucose Test Strip See Rx Instructions .Route Qty: 50 6RF Rx Instructions: use to test blood sugar once daily esomeprazole magnesium [Nexium] 20 mg capsule,delayed release(DR/EC) 20 mg PO DAILY Qty: 90 1RF Trulicity 4.5 mg/0.5 mL pen injector 4.5 mg SUBCUT QWEEK Qty: 6 1RF trazodone 50 mg tablet 50 mg PO BEDTIME PRN (Reason: sleep) Qty: 90 1RF Rx Instructions: If 1 tablet ineffective, may take 2 tabs at bedtime for sleep ibuprofen 600 mg tablet 600 mg PO Q6H PRN (Reason: pain) Qty: 20 0RF rosuvastatin 5 mg tablet 5 mg PO DAILY Qty: 90 1RF hydroxyzine pamoate 25 mg capsule 25 mg PO TID PRN (Reason: anxiety, panic, or itching) Qty: 60 1RF Rx Instructions: do not drive during therapy, may make drowsy Referrals: Tyrone Haley ARNP [Primary Care Provider] - Stand Alone Forms: Patient Portal/API
[2023-08-20] MEDS: NITROFURANTOIN ER 100 MG CAPSULE PO (02:33)
[2023-08-20] MEDS: PHENAZOPYRIDINE 100 MG TABLET PO (02:33)
[2023-08-20] MEDS: IBUPROFEN 400 MG TABLET 800 MG PO (02:33)
[2023-08-20] MEDS: ACETAMINOPHEN 325 MG TABLET 975 MG PO (02:33)
[2023-08-20 02:38] VITALS: BP 104/71; PULSE 98; RESP 19; TEMP 36.7; O2SAT 99
== END 2023-08-20 02:49 | disposition home or self-care (01) ==
PROVIDERS: Emergency Provider Family Medicine Addiction Medicine; PCP Registered Nurse Diabetes Educator
DX: R10.31 Right lower quadrant pain (principal); N39.0 Urinary tract infection, site not specified; R30.0 Dysuria
CPT/HCPCS: 81003; 81015; 81025; 87077; 87086; 87186; 99283

== ENCOUNTER → 2023-08-27 15:06 | Outpatient (CLI) | payer OTHER, SELFPAY | PROVIDERS: PCP Registered Nurse Diabetes Educator; Visit Provider Physician Assistant | DX: R30.0 Dysuria (principal) | CPT/HCPCS: 87086 ==

== ENCOUNTER → 2023-08-27 15:36 | Outpatient (CLI) | payer OTHER, SELFPAY ==
[2023-08-27 17:33] LABS: Add Manual Diff / Slide Review NO; Basophils Absolute Auto 100 /uL (0-100); Basophils Percent Auto 0.6 % (0-2); Eosinophils Absolute Auto 100 /uL (0-450); Eosinophils Percent Auto 1.3 % (2-4); Hemoglobin 12.9 g/dL (12.0-16.0); Lymphocytes Absolute Auto 2400 /uL (1100-4500); Mean Corpuscular Hemoglobin 27.3 PG (26-34); Mean Corpuscular Volume 80.3 fL (80-100); Monocytes Absolute Auto 700 /uL (0-900); Monocytes Percent Auto 7.5 % (3-14); Neutrophils Absolute Auto 5900 /uL (1500-7000); Neutrophils Percent Auto 64.6 % (50-75); Platelet Count 487 X10^3/uL (150-400); Red Blood Cell Count 4.73 X10^6/uL (4.0-5.2); Red Cell Distribution Width 15.5 % (11.6-14.8); White Blood Cell Count 9.1 X10^3/uL (4.5-11.0)
[2023-08-27 17:52] LABS: Alanine Aminotransferase 14 IU/L (<35); Albumin 4.5 g/dL (3.5-5.0); Albumin Globulin Ratio 1.2 (1.0-2.8); Alkaline Phosphatase 70 U/L (38-126); Aspartate Aminotransferase 21 IU/L (14-36); Bilirubin Total 0.5 mg/dL (0.2-1.3); Bilirubin Unconjugated 0.2 mg/dL (0.0-1.1); Cholesterol 212 mg/dL (140-199); Globulin 3.8 g/dL (1.7-4.1); HDL Cholesterol 49 mg/dL (40-60); HEMOLYSIS < 15 (0-50); LDL Cholesterol Calculated 144 mg/dL (<100); Total Protein 8.3 g/dL (6.3-8.2); Triglycerides 97 mg/dL (35-150)
[2023-08-27 17:54] LABS: Lipase 108 U/L (23-300)
== END ==
PROVIDERS: PCP Registered Nurse Diabetes Educator; Referring Provider Physician Assistant; Visit Provider Physician Assistant
DX: R10.9 Unspecified abdominal pain (principal); E78.5 Hyperlipidemia, unspecified; R79.89 Other specified abnormal findings of blood chemistry; D75.839 Thrombocytosis, unspecified; R30.0 Dysuria
CPT/HCPCS: 36415; 80061; 80076; 83690; 85025; 87086

== ENCOUNTER → 2023-09-02 13:08 | Outpatient (CLI) | payer OTHER, SELFPAY ==
--- NOTE | 2023-09-02 13:30 | DI.US.S_ITS ---
PROCEDURE: US ABDOMEN COMPLETE INDICATIONS: RLQ PAIN TECHNIQUE: Real-time scanning was performed of the abdominal and retroperitoneal organs, with image documentation. COMPARISON: [facility], US, US ABDOMEN COMPLETE, 11/16/2019, 14:01. FINDINGS: Liver: Increased liver echogenicity. In the left hepatic lobe, there is a 2.3 x 2.0 x 1.6 cm hyperechoic, nonvascular lesion. Gallbladder: Normal. Biliary ducts: Intrahepatic bile ducts are non-dilated. Extrahepatic bile duct caliber measures 3 mm. Normal is 6-7 mm or less in diameter, or 10 mm or less post-cholecystectomy. Pancreas: Visualized portions of the pancreas are sonographically normal. Spleen: Spleen is normal in size and homogeneous in echotexture. Kidneys: Kidneys are normal in size and echotexture. Right kidney measures 12 cm long; left kidney measures 10 point cm long. No hydronephrosis or nephrolithiasis. No solid masses. Aorta: Visualized aorta is normal in caliber at less than 3 cm. Iliacs: Proximal common iliac arteries are normal in caliber at less than 2.5 cm. IVC: Intrahepatic inferior vena cava is patent. Miscellaneous: No free abdominal fluid. Targeted ultrasound of the right lower quadrant demonstrates no sonographic abnormality. IMPRESSION: Ultrasound of the right lower quadrant demonstrates no sonographic abnormality. Echogenic lesion in the left hepatic lobe measuring 2.3 x 2.0 x 1.6 cm, not reliably seen on the prior exam. Given underlying increased liver echogenicity (indicating liver disease such as steatosis), further evaluation with MRI or CT is recommended (liver mass protocol). Dictated by: Connor Christianson M.D. on 09/02/2023 at 14:50 Approved by: Connor Christianson M.D. on 09/02/2023 at 14:52
== END ==
PROVIDERS: PCP Registered Nurse Diabetes Educator; Referring Provider Physician Assistant; Visit Provider Physician Assistant
DX: K76.9 Liver disease, unspecified (principal); R10.9 Unspecified abdominal pain
CPT/HCPCS: 76700

== ENCOUNTER 2023-09-23 12:16 | Emergency (ER) | payer OTHER, SELFPAY ==
[2023-09-23 12:24] VITALS: BP 117/57; PULSE 95; RESP 18; TEMP 37.1; O2SAT 98; BMI 30.8
--- NOTE | 2023-09-23 12:29 | DI.RAD.S_ITS ---
PROCEDURE: XR HIP W PEL IF DONE RT 2V INDICATIONS: hip pain TECHNIQUE: AP pelvis with lateral view(s) of the right hip(s). COMPARISON: None. FINDINGS: Bones: No fractures or dislocations. Pelvic ring appears intact. No suspicious bony lesions. Soft tissues: The visualized bowel gas pattern is normal. No suspicious soft tissue calcifications. IMPRESSION: No acute fracture. No osseous lesion. If symptoms and/or clinical suspicion for pathology persist, further assessment with repeat, or advanced imaging (e.g., CT, MRI, or bone scan) may be helpful for further assessment. Dictated by: Ron Gautam M.D. on 09/23/2023 at 13:10 Approved by: Ron Gautam M.D. on 09/23/2023 at 13:10
--- NOTE | 2023-09-23 12:39 | PC.NURSE ---
Pt now having tummy pain
--- NOTE | 2023-09-23 12:52 | ED_ITS ---
HPI - Extremity Injury (Lower) General Chief Complaint: Extremity Injury, Lower Stated Complaint: abdominal and hip pain Time Seen by Provider: 09/23/23 12:24 Source: patient Mode of arrival: Wheelchair History of Present Illness HPI Narrative: Patient 38-year-old female history of insulin-dependent diabetes, acid reflux presenting today with right hip pain. She reports that she has had some discomfort for awhile but not really an issue. Yesterday she was dancing and jumping when she felt a pop. She is extremely tender in 1 particular area. It hurts to ambulate. She did not fall. No numbness tingling or weakness down her leg. She took some this morning without any relief. She she was scheduled to have an outpatient CT done today but due to CT maintenance it was canceled. According to ultrasound done 09/02/2023 is a lesion in left hepatic lobe. She currently not having any abdominal pain nausea or vomiting. Related Data Previous Rx's Medication Instructions Recorded blood sugar diagnostic (Blood #50 ea 01/15/22 Glucose Test strips) blood-glucose meter #1 ea 01/15/22 lancets 30 gauge #100 ea 01/15/22 ibuprofen 600 mg tablet 600 mg PO Q6H PRN pain #20 tabs 04/11/22 trazodone 50 mg tablet 50 mg PO BEDTIME PRN sleep #90 tabs 04/11/22 hydroxyzine pamoate 25 mg capsule 25 mg PO TID PRN anxiety, panic, 11/06/22 or itching #60 caps rosuvastatin 5 mg tablet 5 mg PO DAILY #90 tabs 01/16/23 dulaglutide 4.5 mg/0.5 mL 4.5 mg (0.5 mL) SUBCUT QWEEK blood 08/15/23 subcutaneous pen injector sugar control #6 mL (Trulicity) esomeprazole magnesium 20 mg 20 mg PO DAILY #90 caps 08/15/23 capsule,delayed release (Nexium) hydrocodone 5 mg-acetaminophen 325 1 tab PO Q6H PRN pain #10 tabs 09/23/23 mg tablet Allergies Allergy/AdvReac Type Severity Reaction Status Date / Time No Known Drug Allergies Allergy Verified 08/27/23 15:00 Patient History Medical History Anxiety BMI 37.0-37.9, adult Chronic left hip pain Depression Diabetes type 2, uncontrolled Dyslipidemia Elevated fasting blood sugar (09/2019) Elevated liver function tests (09/2019) Elevated serum protein level (11/2020) Fatigue Fatty liver GERD (gastroesophageal reflux disease) (2008) Insomnia Microcytosis (10/2019) Mixed hyperlipidemia (09/2019) Pelvic pain (10/2020) Type 2 diabetes mellitus (09/2019) Vaginal odor Surgical History Status post LEEP (loop electrosurgical excision procedure) of cervix (~01/2020) Family History Unknown Uterus cancer Social History household members: friend(s) Smoking Status: Never smoker second hand exposure: No alcohol intake: never substance use type: does not use Smoking Status: Never smoker alcohol intake frequency: holidays/special occasions only Substance Use Type: does not use Exam Initial Vital Signs Initial Vital Signs: Vital Signs Temperature 98.7 F 09/23/23 12:24 Pulse Rate 95 H 09/23/23 12:24 Respiratory Rate 18 09/23/23 12:24 Blood Pressure 117/57 L 09/23/23 12:24 Pulse Oximetry 98 09/23/23 12:24 Oxygen Delivery Method Room Air 09/23/23 12:24 GENERAL: Well-appearing, well-nourished and in no acute distress. CARDIOVASCULAR: peripheral pulses in tact, cap refill <2 sec RESPIRATORY: No respiratory distress, speaks in full sentences without difficulty EXTREMITIES: Normal range of motion, no clubbing or edema. Neurovascularly intact Right lower extremity full range of motion in hip tender on anterior iliac crest nontender posterior iliac crest no evidence of trauma distal pedal pulse intact NEUROLOGICAL: Cranial nerves II through XII grossly intact. Normal gait and speech. SKIN: Warm, dry, no petechiae, no rashes or lesions. Course Orders Ordered: ED Orders 09/23/23 12:29 XR hip w pel if done RT 2V Stat Discontinued Medications Ketorolac Tromethamine (Ketorolac 30 Mg/Ml Vial) 30 mg IM NOW ONE Stop: 09/23/23 13:08 Last Admin: 09/23/23 13:21 Dose: 30 mg Documented By: MARINA Vital Signs Vital signs: Vital Signs - 8 hr 09/23/23 12:24 09/23/23 14:03 Temperature 98.7 F Pulse Rate 95 H 75 Respiratory Rate 18 16 Blood Pressure 117/57 L 99/60 Pulse Oximetry 98 97 Oxygen Delivery Method Room Air Room Air MDM - Extremity Injury (Lower) Imaging Data Extremity x-ray #1: Radiologist's Impression: PROCEDURE: XR HIP W PEL IF DONE RT 2V INDICATIONS: hip pain TECHNIQUE: AP pelvis with lateral view(s) of the right hip(s). COMPARISON: None. FINDINGS: Bones: No fractures or dislocations. Pelvic ring appears intact. No suspicious bony lesions. Soft tissues: The visualized bowel gas pattern is normal. No suspicious soft tissue calcifications. IMPRESSION: No acute fracture. No osseous lesion. If symptoms and/or clinical suspicion for pathology persist, further assessment with repeat, or advanced imaging (e.g., CT, MRI, or bone scan) may be helpful for further assessment. Dictated by: Ron Gautam M.D. on 09/23/2023 at 13:10 [facility] Narrative Medical decision making narrative: Patient 38-year-old healthy female who presents today with right groin and hip pain. She felt something pop yesterday while dancing. X-ray is negative. She actually has full range of motion on exam neurovascularly intact. Suspect some sort of hip strain. Recommend conservative treatment possible MRI. Pain is pinpoint she jumps off the table when I hit a certain point. Not really abdominal it is really on her iliac crest and bone. Discharge Plan Departure Patient Disposition: Home Clinical Impression: Other sprain of right hip, initial encounter Instructions: DI for Hip Pain Activity Restrictions/Additional Instructions: *You have been diagnosed with right hip pain *What to do: At this time I suspect he sprained your hip. X-ray today is negative. Use crutches as needed. May require outpatient MRI if you are still continuing to have pain. Please have your abdominal CT as previously scheduled *Continue to take medications as directed Advil/ibuprofen 400-600 mg every 6 hours if needed for eofu-in-dmocsajd pain [place] 1 tablet at nighttime to help you sleep *Follow up with your primary care provider in 2-3 days or call [phone] *Return to ER if you should have increasing pain numbness tingling weakness or a ny new, worsening or concerning symptoms CONTROLLED SUBSTANCE DISCHARGE (Narcotoic/benzodiazepine/Flexeril/Phenergan) 1. You have been prescribed narcotic medications, it does have acetaminophen/Tylenol/paracetamol in it, DO NOT TAKE MORE THAN 4,00mg in 24 hours of Tylenol. TRAMADOL DOES NOT CONTAIN TYLENOL 2. Please understand that we cannot provide further refills of narcotics, benzodiazepines or controlled substances through the ED and her pain management will need to be through your provider. 3. While on these medications you cannot drive or operate heavy machinery. 4. You cannot sign legal documents or perform any duties such as this. 5. As long as you're taking opiate pain medications he should also be taking a stool softener such as Colace, Dulcolax, MiraLAX or prune juice, to help avoid constipation. Prescriptions: New hydrocodone-acetaminophen 5-325 mg tablet 1 tab PO Q6H PRN (Reason: pain) Qty: 10 0RF No Action (DME) lancets 30 gauge misc See Rx Instructions .Route Qty: 100 3RF Rx Instructions: test blood sugar once daily. (DME) blood-glucose meter Kit See Rx Instructions .Route Qty: 1 0RF Rx Instructions: use to test blood sugar once daily (DME) Blood Glucose Test Strip See Rx Instructions .Route Qty: 50 6RF Rx Instructions: use to test blood sugar once daily esomeprazole magnesium [Nexium] 20 mg capsule,delayed release(DR/EC) 20 mg PO DAILY Qty: 90 1RF Trulicity 4.5 mg/0.5 mL pen injector 4.5 mg SUBCUT QWEEK Qty: 6 1RF trazodone 50 mg tablet 50 mg PO BEDTIME PRN (Reason: sleep) Qty: 90 1RF Rx Instructions: If 1 tablet ineffective, may take 2 tabs at bedtime for sleep ibuprofen 600 mg tablet 600 mg PO Q6H PRN (Reason: pain) Qty: 20 0RF rosuvastatin 5 mg tablet 5 mg PO DAILY Qty: 90 1RF hydroxyzine pamoate 25 mg capsule 25 mg PO TID PRN (Reason: anxiety, panic, or itching) Qty: 60 1RF Rx Instructions: do not drive during therapy, may make drowsy Referrals: Tyorne Haley ARNP [Primary Care Provider] - Stand Alone Forms: Patient Portal/API
[2023-09-23] MEDS: KETOROLAC 30 MG/ML VIAL IM (13:21)
[2023-09-23 14:03] VITALS: BP 99/60; PULSE 75; RESP 16; O2SAT 97
== END 2023-09-23 14:03 | disposition home or self-care (01) ==
PROVIDERS: Emergency Provider Emergency Medicine; PCP Registered Nurse Diabetes Educator
DX: S73.101A Unspecified sprain of right hip, initial encounter (principal); Y93.41 Activity, dancing
CPT/HCPCS: 73502; 96372; 99283; J1885

== ENCOUNTER → 2023-09-25 12:39 | Outpatient (CLI) | payer OTHER, SELFPAY ==
--- NOTE | 2023-09-25 12:40 | DI.CT.S_ITS ---
PROCEDURE: CT ABDOMEN LIVER PROTOCOL INDICATIONS: liver lesion on Ultrasound TECHNIQUE: 4 phase scanning was performed. Non-contrast 5 mm axial sections acquired from the diaphragm to the iliac crests. Following the administration of intravenous contrast, 5 mm thick arterial-phase, portal venous-phase, and 5-minute delayed phase images were acquired through the liver. 5 mm thick coronal and sagittal reformats were performed. For radiation dose reduction, the following was used: automated exposure control, adjustment of mA and/or kV according to patient size. COMPARISON: [facility], CT, CT ABDOMEN PELVIS WO CON, 12/01/2019, 10:51. FINDINGS: Image quality: Excellent. Lower chest: Unremarkable. ABDOMEN: Liver: No solid mass. Normal enhancement. Patent portal vein. Hepatic steatosis. In segment 2, there is a hypoattenuating lesion measuring 2.4 cm without enhancement. Gallbladder: No radiopaque gallstones or wall thickening. Biliary ducts: No biliary dilation. Pancreas: No ductal dilation. Spleen: Size is within normal limits. Adrenal Glands: No adrenal nodules. Kidneys and Ureters: No hydronephrosis. No solid mass. No complex renal cystic lesion which requires follow up. Stomach and Bowel: Normal colonic caliber, without significant wall thickening. Peritoneum: No abnormal intraperitoneal fluid. No free air. Ventral Wall: No hernia. Abdominal Nodes: No retroperitoneal or mesenteric adenopathy by size criteria. Vessels: Aorta and inferior vena cava are normal in size. PELVIS: Pelvic Organs: Unremarkable. Bladder: Unremarkable. Pelvic Nodes: No enlarged lymph nodes. Miscellaneous: No inguinal hernias are seen. Bones: No aggressive osseous abnormality. IMPRESSION: The segment 2 lesion demonstrates no enhancement. This probably represents a focal region of increased fat deposition. Follow-up in 6 months with ultrasound should be considered. Dictated by: Connor Christianson M.D. on 09/25/2023 at 14:03 Approved by: Connor Christianson M.D. on 09/25/2023 at 14:09
[2023-09-25 13:15] LABS: BUN Creatinine Ratio 15.9 (6-22); Blood Urea Nitrogen 10 mg/dL (7-17); Estimated Glomerular Filt Rate > 60 mL/min (>60)
== END ==
PROVIDERS: PCP Registered Nurse Diabetes Educator; Referring Provider Physician Assistant; Visit Provider Physician Assistant
DX: K76.9 Liver disease, unspecified (principal); E11.9 Type 2 diabetes mellitus without complications; R79.89 Other specified abnormal findings of blood chemistry; Z01.818 Encounter for other preprocedural examination
CPT/HCPCS: 36415; 74170; 82565; 84520; Q9967

== ENCOUNTER → 2023-09-30 13:49 | Outpatient (CLI) | payer OTHER, SELFPAY | PROVIDERS: PCP Registered Nurse Diabetes Educator; Visit Provider Student in an Organized Health Care Education/Training Program | DX: R31.9 Hematuria, unspecified (principal) | CPT/HCPCS: 87086 ==

== ENCOUNTER → 2023-10-09 11:28 | Outpatient (CLI) | payer OTHER, SELFPAY ==
[2023-10-09 12:02] LABS: Add Manual Diff / Slide Review NO; Basophils Absolute Auto 100 /uL (0-100); Basophils Percent Auto 0.6 % (0-2); Eosinophils Absolute Auto 100 /uL (0-450); Eosinophils Percent Auto 1.1 % (2-4); Hematocrit 39.2 % (36-46); Hemoglobin 13.2 g/dL (12.0-16.0); Lymphocytes Absolute Auto 2000 /uL (1100-4500); Lymphocytes Percent Auto 17.1 % (25-40); Mean Corpuscular HGB Conc 33.7 % (30-36); Mean Corpuscular Hemoglobin 27.6 PG (26-34); Mean Corpuscular Volume 81.9 fL (80-100); Monocytes Absolute Auto 600 /uL (0-900); Neutrophils Absolute Auto 8700 /uL (1500-7000); Neutrophils Percent Auto 76.2 % (50-75); Platelet Count 420 X10^3/uL (150-400); Red Blood Cell Count 4.78 X10^6/uL (4.0-5.2); White Blood Cell Count 11.5 X10^3/uL (4.5-11.0)
[2023-10-09 12:27] LABS: Alanine Aminotransferase 15 IU/L (<35); Albumin 4.5 g/dL (3.5-5.0); Albumin Globulin Ratio 1.3 (1.0-2.8); Alkaline Phosphatase 69 U/L (38-126); Aspartate Aminotransferase 19 IU/L (14-36); BUN Creatinine Ratio 17.2 (6-22); Bilirubin Total 0.6 mg/dL (0.2-1.3); Blood Urea Nitrogen 10 mg/dL (7-17); Carbon Dioxide 23 mmol/L (22-32); Chloride 104 mmol/L (98-107); Estimated Glomerular Filt Rate > 60 mL/min (>60); Globulin 3.6 g/dL (1.7-4.1); Glucose 113 mg/dL (70-100); HEMOLYSIS < 15 (0-50); Potassium 4.1 mmol/L (3.4-5.1); Sodium 138 mmol/L (137-145); Total Protein 8.1 g/dL (6.3-8.2)
[2023-10-09 13:48] LABS: Pregnancy Test Urine Negative (Negative)
[2023-10-11 23:53] LABS: Deamidated Gliadin Ab IgA 5 units (0-19); Deamidated Gliadin Ab IgG 1 units (0-19); Immunoglobulin A,Qn 316 mg/dL (87-352); t-Transglutaminase IgA <2 U/mL (0-3)
== END ==
PROVIDERS: PCP Registered Nurse Diabetes Educator; Referring Provider Physician Assistant; Visit Provider Physician Assistant
DX: K59.00 Constipation, unspecified (principal); R10.31 Right lower quadrant pain; G89.29 Other chronic pain; R10.2 Pelvic and perineal pain
CPT/HCPCS: 36415; 80053; 81025; 82784; 83516; 85025

== ENCOUNTER → 2023-10-28 11:01 | Outpatient (CLI) | payer OTHER, SELFPAY ==
[2023-10-28 13:17] LABS: HCG Quantitative /Beta subunit 13868 mIU/mL
== END ==
PROVIDERS: PCP Registered Nurse Diabetes Educator; Referring Provider Registered Nurse Diabetes Educator; Visit Provider Registered Nurse Diabetes Educator
DX: Z32.01 Encounter for pregnancy test, result positive (principal)
CPT/HCPCS: 36415; 84702

== ENCOUNTER → 2023-10-30 10:13 | Outpatient (CLI) | payer OTHER, SELFPAY ==
--- NOTE | 2023-10-30 | DI.US.S_ITS ---
PROCEDURE: US EXTREMITY NONVASC LOWER RT INDICATIONS: RIGHT LATERAL THIGH LUMPS TECHNIQUE: Real-time scanning was performed of the right thigh, with image documentation. COMPARISON: [facility], US, US EXTREMITY NONVASC LOWER LT, 10/30/2023, 10:36. FINDINGS: At the clinical area of concern at the lateral proximal to mid right thigh, no significant sonographic abnormality is seen. Subcutaneous tissues and underlying musculature appear normal sonographically. IMPRESSION: No significant sonographic abnormality at the clinical area of concern. Approved by: Tye Mancini M.D. on 10/30/2023 at 15:22
--- NOTE | 2023-10-30 10:17 | DI.US.S_ITS ---
PROCEDURE: US OB <= 14 WEEKS FETUS INDICATIONS: DATING OUTSIDE/PRIOR DATING DATA: Last menstrual period (LMP): 09/07/2023 (uncertain) LMP-based estimated date of delivery (LEAH): 06/13/2024 First dating scan (date and location): 10/30/2023 Estimated date of delivery (LEAH) from first dating scan: 06/23/2024 TECHNIQUE: Real-time scanning was performed of the fetus and maternal pelvic organs, with image documentation. Endovaginal scanning was also performed to better visualize the fetus and maternal ovaries. COMPARISON: None. FINDINGS: Embryo: Intrauterine gestational sac is seen with yolk sac and pole. Raysal-rump length is 0.4 cm, compatible nest images external age of 6 weeks 1 day. Heart rate: 113 beats per minute Maternal organs: Ovaries are within normal limits. Probable right ovarian corpus luteal cyst. IMPRESSION: Single live intrauterine with estimated gestational age of 6 weeks 1 day, corresponding to an ultrasound LEAH of 06/23/2024. Approved by: Tye Mancini M.D. on 10/30/2023 at 15:20
--- NOTE | 2023-10-30 10:17 | DI.US.S_ITS ---
PROCEDURE: US EXTREMITY NONVASC LOWER LT INDICATIONS: multiple pea size nodules along lateral leg TECHNIQUE: Real-time scanning was performed of the left thigh, with image documentation. COMPARISON: None. FINDINGS: No significant sonographic abnormality is seen corresponding to the palpable area of concern at the left lateral proximal to mid thigh. IMPRESSION: No significant sonographic abnormality at the clinical area of concern. Approved by: Tye Mancini M.D. on 10/30/2023 at 13:10
--- NOTE | 2023-10-30 11:04 | DI.US.S_ITS ---
LIMITED ULTRASOUND OF LEFT BREAST: 10/30/2023 CLINICAL: Palpable left breast lump. No prior exams were available for comparison. Color flow and real-time ultrasound of the left breast 11 o'clock region were performed. Siddiqui scale images of the real-time examination were reviewed. No significant abnormalities were seen sonographically in the left breast. IMPRESSION: NEGATIVE No sonographic evidence of malignancy in the region of the palpable abnormality. Exam findings were conveyed to the patient. Patient is currently . Patient is advised to monitor for significant change. Clinical follow-up as needed. A 3 year screening mammogram is recommended. This exam was interpreted at Station ID: [id number]. Electronically Signed By: Pedro Pablo Gil M.D. [facility] [place]/:10/30/2023 11:28:37 letter sent: Normal Exam Ultrasound BI-RADS: 1 Negative
== END ==
LOC: US 10:14
PROVIDERS: PCP Registered Nurse Diabetes Educator; Referring Provider Physician Assistant; Visit Provider Physician Assistant
DX: O92.29 Other disorders of breast associated with pregnancy and the puerperium; O99.891 Other specified diseases and conditions complicating pregnancy; R22.42 Localized swelling, mass and lump, left lower limb; R22.41 Localized swelling, mass and lump, right lower limb; R10.2 Pelvic and perineal pain; Z3A.01 Less than 8 weeks gestation of pregnancy
CPT/HCPCS: 76642; 76801; 76817; 76882

== ENCOUNTER → 2023-11-05 16:06 | Outpatient (CLI) | payer OTHER, SELFPAY | LOC: LAB 16:08 | PROVIDERS: PCP Registered Nurse Diabetes Educator; Referring Provider Obstetrics & Gynecology; Visit Provider Obstetrics & Gynecology | DX: O20.0 Threatened abortion (principal) | CPT/HCPCS: 36415; 86900; 86901 ==

== ENCOUNTER → 2023-11-18 20:41 | Outpatient (ROUT) | payer OTHER, SELFPAY ==
[2023-11-18 21:26] LABS: HCG Quantitative /Beta subunit 1847.4 mIU/mL
== END ==
PROVIDERS: PCP Registered Nurse Diabetes Educator; Visit Provider Advanced Practice Midwife
DX: N91.2 Amenorrhea, unspecified (principal)
CPT/HCPCS: 84702

== ENCOUNTER 2023-12-10 00:40 | Observation (INO) | payer OTHER, SELFPAY ==
[2023-12-10] VITALS (18 sets, daily range): BP systolic 89–124; BP diastolic 51–83; PULSE 90–114; RESP 10–20; TEMP 36.1–37.2; O2SAT 97–100; BMI 29.6
--- NOTE | 2023-12-10 | PATH_ITS ---
[facility] Accession Number: [id number] No. of containers..01 Tissue . 01 Material submitted: . product of conception - PRODUCTS OF CONCEPTION . 01 Diagnosis: UTERINE CONTENTS: Degenerated fibrotic and hydropic chorionic villi, inflamed decidua, and endometrial tissue. Negative for gestational trophoblastic disease. MRV 12/12/2023 1604 Local . 01 Electronically signed: . Margarita Jane MD, Pathologist NPI- [id number] . 01 Gross description: . Received in formalin with two identifiers and products of conception, are multiple wheeler, spongy to membranous, soft tissue fragments admixed with mucohemorrhagic material aggregating to 4.3 x 3.5 x 1.2 cm. No tissue is identified. Police [employer] sections are submitted in cassettes A1-A2. ([id number]) /MRV 12/11/2023 1007 Local . 01 Pathologist provided ICD-10: O03.9 . 01 CPT . 034216 Specimen Comment: A courtesy copy of this report has been sent to [facility] Pathology Performed at: 01 [facility] [address] [place] [address], [place], [place] [id number] MD Vinnie Khan MD Phone: [phone]
--- NOTE | 2023-12-10 00:55 | DI.US.S_ITS ---
PROCEDURE: US PELVIC COMPLETE INDICATIONS: vag bleeding since elective baby 1 month ago TECHNIQUE: Real-time scanning was performed of the pelvic organs, with image documentation. Additional endovaginal scanning was necessary due to incomplete visualization of the adnexal and endometrial structures by transabdominal scanning. COMPARISON: [facility], US, US PELVIC COMPLETE, 12/25/2021, 11:32. FINDINGS: Uterus: Uterus is anteverted and normal in size at 8.4 x 4.7 x 6.3 cm. The myometrium is homogeneous. The endometrium measures 14.9 mm combined thickness. There is a 2.1 x 1.4 x 2.1 cm hypeechoic mass within the endometrium with increased vascularity, suspicious for retained products of conception. Ovaries: The right ovary measures 2.5 x 2.7 x 1.9 cm, with a calculated ovarian volume of 6.9 cc. The left ovary measures 1.7 x 2.2 x 1.5 cm, with a calculated ovarian volume of 3.1 cc. The ovaries have a normal sonographic appearance. Less than 12 follicles can be seen in each ovary. No adnexal masses are seen. Other: No pathologic free abdominal or pelvic fluid. IMPRESSION: 1. There is a 2.1 x 1.4 x 2.1 cm hypeechoic mass within the endometrium with increased vascularity, suspicious for retained products of conception. We strive to produce accurate, complete, and clear reports of imaging services. To assist us in improving patient care, this report was composed using standard report templates and voice recognition software. Therefore, it may contain abnormal punctuation, insertions and/or omissions. Occasional wrong-word or sound-alike substitutions may occur. Though we review the report and make efforts to correct it, we do recommend that the report be read carefully in proper context to recognize any text inaccuracies. Dictated by: Florentino Moser M.D. on 12/10/2023 at 1:55 Approved by: Florentino Moser M.D. on 12/10/2023 at 1:57
--- NOTE | 2023-12-10 00:56 | ED.GENADULT ---
HPI - General Adult General Chief complaint: Urogenital-Female Stated complaint: vaginal bleeding and blood clots Time Seen by Provider: 12/10/23 00:51 Source: patient Mode of arrival: Ambulatory History of Present Illness HPI narrative: Patient is a 38-year-old female who approximately 5 weeks ago underwent a elective . Since that time she has had continued vaginal bleeding with passage of clots and requiring multiple pads an hour. She was here in the emergency department this evening not necessarily because her symptoms have worsened all that much or because she was develop new symptoms but she thought that it was just time for her to be evaluated. No fevers. Related Data Previous Rx's Medication Instructions Recorded blood sugar diagnostic (Blood #50 ea 01/15/22 Glucose Test strips) blood-glucose meter #1 ea 01/15/22 lancets 30 gauge #100 ea 01/15/22 esomeprazole magnesium 20 mg 20 mg PO DAILY #90 caps 08/15/23 capsule,delayed release (Nexium) vits no.130-ferrous fum 1 tab PO DAILY #100 tabs 10/28/23 27 mg iron-folic acid 800 mcg tablet ( Vitamin) Allergies Allergy/AdvReac Type Severity Reaction Status Date / Time No Known Drug Allergies Allergy Verified 11/05/23 15:37 Review of Systems Constitutional Constitutional: Reports system reviewed and no additional complaints, except as documented Gastrointestinal Gastrointestinal: Reports system reviewed and no additional complaints, except as documented Genitourinary Genitourinary: Reports system reviewed and no additional complaints, except as documented Musculoskeletal Musculoskeletal: Reports system reviewed and no additional complaints, except as documented Hematologic/Lymphatic On Anticoagulants: No Patient History Medical History Dyslipidemia Diabetes type 2, uncontrolled Elevated serum protein level (11/2020) Fatigue Microcytosis (10/2019) Fatty liver Pelvic pain (10/2020) Vaginal odor Type 2 diabetes mellitus (09/2019) Elevated liver function tests (09/2019) Elevated fasting blood sugar (09/2019) Mixed hyperlipidemia (09/2019) Chronic left hip pain Insomnia BMI 37.0-37.9, adult Anxiety Depression GERD (gastroesophageal reflux disease) (2008) Surgical History Status post LEEP (loop electrosurgical excision procedure) of cervix (~01/2020) Family History Unknown Uterus cancer Social History household members: friend(s) Smoking Status: Current some day smoker second hand exposure: No alcohol intake: never substance use type: does not use Smoking Status: Current some day smoker alcohol intake frequency: holidays/special occasions only Substance Use Type: marijuana Exam Initial Vital Signs Initial Vital Signs: Vital Signs Pulse Rate 105 H 12/10/23 00:46 Pulse Oximetry 99 12/10/23 00:46 Oxygen Delivery Method Room Air 12/10/23 00:46 HENMT Head: normal to inspection and normocephalic Resp Effort & Inspection: normal respiratory effort Cardio Rate: regular rate GI Inspection: normal to inspection and non-distended Skin General: no rashes or lesions noted Course Orders Ordered: ED Orders 12/10/23 00:55 US pelvic complete Stat 12/10/23 00:56 Consult to PHYSICIST [employer] - 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 Stat 12/10/23 00:59 Basic Metabolic Panel Stat Complete Blood Count AUTO DIFF Stat HCG Quantitative /Beta subunit Stat 12/10/23 01:50 Urine Microscopic Stat Doxycycline Hyclate (Doxycycline Hyclate 100 Mg Tablet) 200 mg PO PREOP OSEI Last Admin: 12/10/23 03:15 Dose: 200 mg Documented By: Sodium Chloride (Normal Saline 0.9%) 1,000 mls @ 100 mls/hr IV CONT OSEI Last Admin: 12/10/23 02:45 Dose: 100 mls/hr Documented By: Vital Signs Vital signs: Vital Signs - 8 hr 12/10/23 00:46 12/10/23 00:47 12/10/23 01:00 Temperature 97.9 F Pulse Rate 105 H 107 H 100 H Respiratory Rate 18 Blood Pressure 121/83 Pulse Oximetry 99 99 99 Oxygen Delivery Method Room Air Room Air Room Air 12/10/23 01:30 12/10/23 02:00 12/10/23 02:30 Temperature Pulse Rate 101 H 93 H 91 H Respiratory Rate Blood Pressure Pulse Oximetry 100 99 99 Oxygen Delivery Method Room Air Room Air Room Air 12/10/23 02:48 12/10/23 02:48 Temperature Pulse Rate 90 Respiratory Rate Blood Pressure 89/51 L Pulse Oximetry 99 Oxygen Delivery Method Medical Decision Making Lab Data Lab results reviewed: Yes I reviewed the patient's lab results. 12/10/23 00:59 12/10/23 00:59 Labs: Lab Results 12/10/23 12/10/23 Range/Units 00:59 01:50 WBC 8.2 (4.5-11.0) X10^3/uL RBC 3.44 L (4.0-5.2) X10^6/uL Hgb 9.4 L (12.0-16.0) g/dL Hct 27.6 L (36-46) % MCV 80.2 (80-100) fL MCH 27.4 (26-34) PG MCHC 34.2 (30-36) % RDW 13.8 (11.6-14.8) % Plt Count 482 H (150-400) X10^3/uL Neut % (Auto) 65.7 (50-75) % Lymph % (Auto) 26.6 (25-40) % [place] % (Auto) 5.1 (3-14) % Eos % (Auto) 1.6 L (2-4) % Baso % (Auto) 1.0 (0-2) % Neut # (Auto) 5400 (5136-3556) /uL Lymph # (Auto) 2200 (9314-0495) /uL [place] # (Auto) 400 (0-900) /uL Eos # (Auto) 100 (0-450) /uL Baso # (Auto) 100 (0-100) /uL Sodium 138 (137-145) mmol/L Potassium 3.0 L (3.4-5.1) mmol/L Chloride 104 (98-107) mmol/L Carbon Dioxide 25 (22-32) mmol/L BUN 13 (7-17) mg/dL Creatinine 0.61 (0.52-1.04) mg/dL Estimated GFR > 60 (>60) mL/min BUN/Creatinine Ratio 21.3 (6-22) Glucose 165 H (70-100) mg/dL Calcium 9.5 (8.4-10.2) mg/dL HCG, Quant 148.4 mIU/mL Urine RBC 1-5/hpf D (0-5/HPF) Urine WBC None seen (0-5/HPF) Ur Squamous Epith Cells 0-1 /hpf (0-5/HPF) Urine Bacteria None seen (None) Ur Culture Indicated? Cult not indicated Vol Urine Centrifuged 10ml (spun) Point of Care Testing Test Results Positive Urine Dip Bedside Urine Glucose Negative Bedside Urine Bilirubin - Negative Bedside Urine Ketone +++ 80 Urine Specific [place] 1.030 Bedside Urine Occult Blood +++ Bedside Urine pH 6.0 Bedside Urine Protein - Negative Bedside Urine Urobilinogen - Negative Bedside Urine Nitrite - Negative Bedside Urine Leukocytes - Negative Esterase Point of care testing: Point of Care Testing Test Results Positive Urine Dip Bedside Urine Glucose Negative Bedside Urine Bilirubin - Negative Bedside Urine Ketone +++ 80 Urine Specific [place] 1.030 Bedside Urine Occult Blood +++ Bedside Urine pH 6.0 Bedside Urine Protein - Negative Bedside Urine Urobilinogen - Negative Bedside Urine Nitrite - Negative Bedside Urine Leukocytes - Negative Esterase Imaging Data 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 Additional endovaginal scanning was necessary due to incomplete visualization of the adnexal and endometrial structures by transabdominal scanning. COMPARISON: [facility], US, US PELVIC COMPLETE, 12/25/2021, 11:32. FINDINGS: Uterus: Uterus is anteverted and normal in size at 8.4 x 4.7 x 6.3 cm. The myometrium is homogeneous. The endometrium measures 14.9 mm combined thickness. There is a 2.1 x 1.4 x 2.1 cm hypeechoic mass within the endometrium with increased vascularity, suspicious for retained products of conception. Ovaries: The right ovary measures 2.5 x 2.7 x 1.9 cm, with a calculated ovarian volume of 6.9 cc. The left ovary measures 1.7 x 2.2 x 1.5 cm, with a calculated ovarian volume of 3.1 cc. The ovaries have a normal sonographic appearance. Less than 12 follicles can be seen in each ovary. No adnexal masses are seen. Other: No pathologic free abdominal or pelvic fluid. IMPRESSION: 1. There is a 2.1 x 1.4 x 2.1 cm hypeechoic mass within the endometrium with increased vascularity, suspicious for retained products of conception. MDM Narrative Medical decision making narrative: Rh positive. Ultrasound shows findings consistent with retained products of conception. Discussed the case with Dr. Contreras education administrative assistant on-call. Plan will be is to take patient to the operating room for a suction D& C. I discuss the findings of the ultrasound with the patient. Will admit for further evaluation and treatment Discharge Plan Departure Patient Disposition: Admitted to Surgery Clinical Impression: Retained products of conception, Vaginal bleeding Anemia Qualifiers: Anemia type: iron deficiency Iron deficiency anemia type: chronic blood loss Qualified Code(s): D50.0 - Iron deficiency anemia secondary to blood loss (chronic) Admit Date/Time: 12/10/23 02:58 Admit Provider: Fe Contreras
--- NOTE | 2023-12-10 01:06 | PC.NURSE ---
Pt see by [facility] office and given oral supplements. Pt states that she has been bleeding since day 1 of pill on 11/09/23. Bleeding stopped for a short period of time, then came back with a vengence. At this time pt is feeling the bleeding has been going on too long and has worsened.
[2023-12-10 01:11] LABS: Add Manual Diff / Slide Review NO; Basophils Absolute Auto 100 /uL (0-100); Eosinophils Absolute Auto 100 /uL (0-450); Eosinophils Percent Auto 1.6 % (2-4); Hematocrit 27.6 % (36-46); Hemoglobin 9.4 g/dL (12.0-16.0); Lymphocytes Absolute Auto 2200 /uL (1100-4500); Lymphocytes Percent Auto 26.6 % (25-40); Mean Corpuscular HGB Conc 34.2 % (30-36); Mean Corpuscular Hemoglobin 27.4 PG (26-34); Mean Corpuscular Volume 80.2 fL (80-100); Monocytes Absolute Auto 400 /uL (0-900); Monocytes Percent Auto 5.1 % (3-14); Neutrophils Absolute Auto 5400 /uL (1500-7000); Neutrophils Percent Auto 65.7 % (50-75); Platelet Count 482 X10^3/uL (150-400); Red Blood Cell Count 3.44 X10^6/uL (4.0-5.2); Red Cell Distribution Width 13.8 % (11.6-14.8); White Blood Cell Count 8.2 X10^3/uL (4.5-11.0)
[2023-12-10 01:26] LABS: BUN Creatinine Ratio 21.3 (6-22); Blood Urea Nitrogen 13 mg/dL (7-17); Calcium 9.5 mg/dL (8.4-10.2); Carbon Dioxide 25 mmol/L (22-32); Chloride 104 mmol/L (98-107); Estimated Glomerular Filt Rate > 60 mL/min (>60); Glucose 165 mg/dL (70-100); HEMOLYSIS < 15 (0-50); Sodium 138 mmol/L (137-145)
[2023-12-10 01:43] LABS: HCG Quantitative /Beta subunit 148.4 mIU/mL
[2023-12-10 02:20] LABS: Bacteria Urine None Seen; RBC Urine 1-5/HPF (0-5/HPF); Squamous Epithelial Cell Urine 0-1 /HPF (0-5/HPF); Urine Volume 10mL (spun); WBC Urine None Seen (0-5/HPF)
[2023-12-10 02:21] LABS: Culture Indicated Urine Cult Not Indicated
[2023-12-10] MEDS: SODIUM CHLORIDE 0.9% 1,000 ML 100 ML IV (02:45)
--- NOTE | 2023-12-10 03:04 | P.HP_ITS ---
History of Present Illness History of Present Illness Date Patient Seen: 12/10/23 Time Patient Seen: 03:04 Chief complaint: vaginal bleeding and blood clots Narrative: 38yo with hx of medical 5wks ago, presented to the ER for persistent heavy bleeding. She states that she took medication, and has continued to have vaginal bleeding since then. She denies fever, but has occasionally had lightheadedness and chills. Has cramping occasionally, but no persistent abdominal pain. She is changing a pad every few hours with heavy flow. [facility] Medical History Dyslipidemia Diabetes type 2, uncontrolled Elevated serum protein level (11/2020) Fatigue Microcytosis (10/2019) Fatty liver Pelvic pain (10/2020) Vaginal odor Type 2 diabetes mellitus (09/2019) Elevated liver function tests (09/2019) Elevated fasting blood sugar (09/2019) Mixed hyperlipidemia (09/2019) Chronic left hip pain Insomnia BMI 37.0-37.9, adult Anxiety Depression GERD (gastroesophageal reflux disease) (2008) Surgical History Status post LEEP (loop electrosurgical excision procedure) of cervix (~01/2020) Family History Unknown Uterus cancer Social History household members: friend(s) Smoking Status: Current some day smoker second hand exposure: No alcohol intake: never substance use type: does not use Meds Home Medications and Allergies Home Medications Medication Instructions Recorded Confirmed Type blood sugar diagnostic (Blood #50 ea 01/15/22 10/28/23 Rx Glucose Test strips) blood-glucose meter #1 ea 01/15/22 10/28/23 Rx lancets 30 gauge #100 ea 01/15/22 10/28/23 Rx esomeprazole magnesium 20 mg 20 mg PO DAILY #90 caps 08/15/23 10/28/23 Rx capsule,delayed release (Nexium) vits no.130-ferrous fum 1 tab PO DAILY #100 tabs 10/28/23 10/28/23 Rx 27 mg iron-folic acid 800 mcg tablet ( Vitamin) Allergies Allergy/AdvReac Type Severity Reaction Status Date / Time No Known Drug Allergies Allergy Verified 11/05/23 15:37 Review of Systems Review of Systems ROS: Yes All systems reviewed with the patient and are negative except as otherwise documented Exam Vital Signs (past 8 hours): - 12/10/23 00:46 12/10/23 00:47 12/10/23 01:00 Temperature 97.9 F Pulse Rate 105 H 107 H 100 H Respiratory Rate 18 Blood Pressure 121/83 Pulse Oximetry 99 99 99 Oxygen Delivery Method Room Air Room Air Room Air 12/10/23 01:30 12/10/23 02:00 12/10/23 02:30 Temperature Pulse Rate 101 H 93 H 91 H Respiratory Rate Blood Pressure Pulse Oximetry 100 99 99 Oxygen Delivery Method Room Air Room Air Room Air Oxygen Delivery Method Room Air Const General: comfortable and No acute distress Resp Effort & Inspection: normal respiratory effort and able to speak in complete sentences GI Inspection: normal to inspection Palpation: soft, No guarding and No tender Other: minimal fundal tenderness Skin General: no rashes or lesions noted Neuro Cognition: normal cognition Speech: speech normal Psych Mood: congruent mood Affect: normal affect Objective Imaging US - abdomen: Radiologist's impression: FINDINGS: Uterus: Uterus is anteverted and normal in size at 8.4 x 4.7 x 6.3 cm. The myometrium is homogeneous. The endometrium measures 14.9 mm combined thickness. There is a 2.1 x 1.4 x 2.1 cm hypeechoic mass within the endometrium with increased vascularity, suspicious for retained products of conception. Ovaries: The right ovary measures 2.5 x 2.7 x 1.9 cm, with a calculated ovarian volume of 6.9 cc. The left ovary measures 1.7 x 2.2 x 1.5 cm, with a calculated ovarian volume of 3.1 cc. The ovaries have a normal sonographic appearance. Less than 12 follicles can be seen in each ovary. No adnexal masses are seen. Other: No pathologic free abdominal or pelvic fluid. IMPRESSION: 1. There is a 2.1 x 1.4 x 2.1 cm hypeechoic mass within the endometrium with increased vascularity, suspicious for retained products of conception. We strive to produce accurate, complete, and clear reports of imaging services. To assist us in improving patient care, this report was composed using standard report templates and voice recognition software. Therefore, it may contain abnormal punctuation, insertions and/or omissions. Occasional wrong-word or sound-alike substitutions may occur. Though we review the report and make efforts to correct it, we do recommend that the report be read carefully in proper context to recognize any text inaccuracies. Dictated by: Florentino Moser M.D. on 12/10/2023 at 1:55 Approved by: Florentino Moser M.D. on 12/10/2023 at 1:57 Labs 12/10/23 00:59 12/10/23 00:59 Labs: Laboratory Results - last 24 hr 12/10/23 12/10/23 00:59 01:50 WBC 8.2 RBC 3.44 L Hgb 9.4 L Hct 27.6 L MCV 80.2 MCH 27.4 MCHC 34.2 RDW 13.8 Plt Count 482 H Neut % (Auto) 65.7 Lymph % (Auto) 26.6 [place] % (Auto) 5.1 Eos % (Auto) 1.6 L Baso % (Auto) 1.0 Neut # (Auto) 5400 Lymph # (Auto) 2200 [place] # (Auto) 400 Eos # (Auto) 100 Baso # (Auto) 100 Sodium 138 Potassium 3.0 L Chloride 104 Carbon Dioxide 25 BUN 13 Creatinine 0.61 Estimated GFR > 60 BUN/Creatinine Ratio 21.3 Glucose 165 H Calcium 9.5 HCG, Quant 148.4 Urine RBC 1-5/hpf D Urine WBC None seen Ur Squamous Epith Cells 0-1 /hpf Urine Bacteria None seen Ur Culture Indicated? Cult not indicated Vol Urine Centrifuged 10ml (spun) Assessment & Plan Assessment and plan (1) Retained products of conception: Status: Acute (2) Vaginal bleeding: Status: Acute (3) Anemia: Qualifiers: Iron deficiency anemia type: chronic blood loss Anemia type: iron deficiency Qualified Code(s): D50.0 - Iron deficiency anemia secondary to blood loss (chronic) Status: Acute Assessment & Plan narrative: 38yo now 5wks s/p EAB with medication, with suspected retained products of conception. Recommended that patient proceed to the OR for suction D&C. -plan 200mg doxycycline PO for ppx -VTE risk low, SCDs for ppx -plan for outpatient surgery Surgery consent We discussed the risks/benefits/alternatives to the proposed procedure, to include: -risk of bleeding, requiring medications, blood products, or other procedures as indicated, including potentially hysterectomy -risk of infection, requiring prolonged hospital stay or other procedures -risk of injury to other structures, including bowel, bladder, blood vessels, nerves, etc. which may also require additional procedures -risk of adverse reaction to anesthesia or medications -risk of venous thromboembolism and associated sequelae -risk of rare complications such as cardiac arrest, or extremely rarely, Patient is aware of the risks, and desires to proceed with planned surgical procedure. Time Spent With Patient Time with patient: less than 30 minutes
[2023-12-10] MEDS: DOXYCYCLINE HYCLATE 100 MG TABLET 200 MG PO (03:15)
[2023-12-10] MEDS: LACTATED RINGERS 1,000 ML 42 ML IV (03:39)
[2023-12-10] MEDS: ACETAMINOPHEN IV 1,000 MG/100 ML VIAL 400 MG IV (03:51)
--- NOTE | 2023-12-10 03:59 | SUR.OPER ---
Lithotomy on padded OR bed, head on pillow, arms secured on padded arm boards at <90 degrees abduction. Legs secured in padded yellow fins stirrups.
--- NOTE | 2023-12-10 04:11 | PM.OP.1 ---
Operative Date/Time/Diagnoses Date of procedure: 12/10/23 Time of procedure: 03:45 Pre-op diagnosis: 1. Suspected retained products of conception 2. Abnormal vaginal bleeding 3. Chronic blood loss anemia Post-op diagnosis: same Procedure & Clinicians Procedure: Suction dilation and curettage Same procedure as scheduled: Yes Indications: 38yo with hx of medical 5wks ago, presented to the ER for persistent heavy bleeding. She states that she took medication, and has continued to have vaginal bleeding since then. She denies fever, but has occasionally had lightheadedness and chills. Has cramping occasionally, but no persistent abdominal pain. She is changing a pad every few hours with heavy flow. Surgeon: Fe Contreras Click Yes if Unassisted: Yes Anesthesia Type: General Operative Notes Findings: Hypoechoic tissue seen at the fundus on abdominal US in the OR, which was gone at the end of the procedure. Small amount of tissue obtained. Slow uterine bleeding noted at the end of the case. Closure Type: not applicable Specimen(s): other (products of conception) Estimated Blood Loss (mL): 50 Blood products transfused: none Procedure in detail: The risks, benefits, indications and alternatives of the procedure were reviewed with the patient and informed consent was obtained. The pt was taken to the operating room where general anesthesia was obtained without difficulty. The pt was then placed in the low lithotomy position using gel-padded Mason Stirrups. SCDs were placed bilaterally for VTE prophylaxis. The pt was then prepped and draped in the sterile fashion. She received 200mg doxycycline PO in the preop area for surgical prophylaxis. A sterile speculum was placed in the patient?s vagina and the cervix was visualized.? A single tooth tenaculum was used to grasp the anterior lip of the cervix. The cervix was then gently, serially dilated to a size 7mm Hegar dilator. A 7mm curved suction catheter was then introduced into the uterine cavity under ultrasound guidance and gently advanced to the uterine fundus. The suction device was then activated to 60mmHg and the catheter was rotated to clear the uterus of products of conception. Several passes were performed with a small amount of tissue obtained. A gentle, sharp curettage was then performed until a gritty texture was noted. All tissue was sent to pathology for review. The single tooth tenaculum was then removed from the anterior lip of the cervix. The tenaculum sites were noted to be hemostatic with direct pressure. All instruments were then removed from the patient?s vagina. At the completion of the case the sponge and needle counts were correct x 2. The patient tolerated the procedure well and was taken to the PACU in stable condition. Complications: none Post-operative Condition: stable Disposition: PACU Plan for aftercare: Discharge to home once meeting discharge criteria.
[2023-12-10] MEDS: KETOROLAC 30 MG/ML VIAL IV (04:20)
== END 2023-12-10 04:57 | disposition home or self-care (01) ==
LOC: ED 02:37 → AC 02:59
PROVIDERS: Admitting Provider Student in an Organized Health Care Education/Training Program; Emergency Provider Emergency Medicine; PCP Registered Nurse Diabetes Educator; Referring Provider Emergency Medicine; Visit Provider Student in an Organized Health Care Education/Training Program
PROC: (CPT 58120; principal; 2023-12-10 03:30)
DX: O03.1 Delayed or excessive hemorrhage following incomplete spontaneous abortion (principal); D50.0 Iron deficiency anemia secondary to blood loss (chronic)
CPT/HCPCS: 59812; 36415; 76856; 80048; 81003; 81015; 81025; 82962; 84702; 85025; 96374; 99221; 99284; G0378; J0136; J0330; J1885; J2405; J2704; J2765; J3010

== ENCOUNTER 2023-12-28 19:23 | Emergency (ER) | payer OTHER, SELFPAY ==
[2023-12-28 19:50] VITALS: BP 120/67; PULSE 121; RESP 16; TEMP 35.9; O2SAT 99; BMI 29.6
[2023-12-28 20:37] LABS: Influenza A - CEPHEID Flu A NEGATIVE (NEGATIVE); Influenza B - CEPHEID Flu B POSITIVE (NEGATIVE); Respiratory Syncytial Virus Negative (Negative)
[2023-12-28 21:11] LABS: COVID-19 CEPHEID 4-PLEX PCR Negative (Negative)
--- NOTE | 2023-12-28 23:13 | ED.URI ---
HPI - URI/Sore Throat General Chief Complaint: Upper Respiratory Symptoms Stated Complaint: fever, cough and dizziness Time Seen by Provider: 12/28/23 23:01 History of Present Illness HPI Narrative: 38-year-old female presents for evaluation of 1 week of fever, cough, as well as an itchy rash that goes from her left arm to her left breast. Reports decreased appetite over the last week due to nausea, however she was still drinking fluids. Patient states she was here because she can not take any more time off of work and needs a note. Related Data Previous Rx's Medication Instructions Recorded blood sugar diagnostic (Blood #50 ea 01/15/22 Glucose Test strips) blood-glucose meter #1 ea 01/15/22 lancets 30 gauge #100 ea 01/15/22 esomeprazole magnesium 20 mg 20 mg PO DAILY #90 caps 08/15/23 capsule,delayed release (Nexium) vits no.130-ferrous fum 1 tab PO DAILY #100 tabs 10/28/23 27 mg iron-folic acid 800 mcg tablet ( Vitamin) ondansetron 4 mg disintegrating 4 mg PO Q8H PRN nausea and 12/29/23 tablet vomiting #30 tabs Allergies Allergy/AdvReac Type Severity Reaction Status Date / Time No Known Drug Allergies Allergy Verified 12/28/23 19:54 Review of Systems Review of Systems Narrative: See HPI Patient History Medical History Dyslipidemia Diabetes type 2, uncontrolled Elevated serum protein level (11/2020) Fatigue Microcytosis (10/2019) Fatty liver Pelvic pain (10/2020) Vaginal odor Type 2 diabetes mellitus (09/2019) Elevated liver function tests (09/2019) Elevated fasting blood sugar (09/2019) Mixed hyperlipidemia (09/2019) Chronic left hip pain Insomnia BMI 37.0-37.9, adult Anxiety Depression GERD (gastroesophageal reflux disease) (2008) Surgical History Status post LEEP (loop electrosurgical excision procedure) of cervix (~01/2020) Family History Unknown Uterus cancer Social History household members: friend(s) Smoking Status: Former smoker second hand exposure: No alcohol intake: never substance use type: does not use Smoking Status: Former smoker alcohol intake frequency: holidays/special occasions only Substance Use Type: does not use Exam Initial Vital Signs Initial Vital Signs: Vital Signs Temperature 96.6 F L 12/28/23 19:50 Pulse Rate 121 H 12/28/23 19:50 Respiratory Rate 16 12/28/23 19:50 Blood Pressure 120/67 12/28/23 19:50 Pulse Oximetry 99 12/28/23 19:50 Oxygen Delivery Method Room Air 12/28/23 19:50 Const: Awake, alert, no acute distress, nontoxic appearing Cardiac: regular rate, regular rhythm RESP: unlabored, clear bilaterally, no wheezing Skin: Warm, Dry, intact, no rashes Neuro: AO x3, CN II-XII grossly intact, moves all extremities Course Orders Ordered: ED Orders 12/28/23 23:13 Chest [XR chest 1V] Stat 12/28/23 23:30 CBC Auto Diff [Complete Blood Count AUTO DIFF] Stat CMP [Comprehensive Metabolic Panel] Stat Discontinued Medications Dexamethasone (Dexamethasone 10 Mg/Ml Vial) 10 mg IV NOW ONE Stop: 12/28/23 23:13 Last Admin: 12/28/23 23:21 Dose: 10 mg Documented By: AB Diphenhydramine HCl (Diphenhydramine 50 Mg/Ml Vial) 50 mg IV NOW ONE Stop: 12/28/23 23:13 Last Admin: 12/28/23 23:21 Dose: 50 mg Documented By: AB Sodium Chloride (Sodium Chloride 0.9% Flush) 10 ml IV BID OSEI Sodium Chloride (Sodium Chloride 0.9% Flush) 10 ml IV PRN PRN PRN Reason: Flush Vital Signs Vital signs: Vital Signs - 8 hr 12/28/23 23:52 12/29/23 00:37 Pulse Rate 116 H 102 H Respiratory Rate 18 Blood Pressure 109/59 L 101/69 Pulse Oximetry 98 98 Oxygen Delivery Method Room Air Room Air MDM - URI/Sore Throat Differential Diagnosis Differential diagnosis: Likely upper respiratory infection, croup and otitis media Lab Data 12/28/23 23:30 12/28/23 23:30 Labs: Lab Results 12/28/23 12/28/23 Range/Units 19:56 23:30 WBC 4.3 L (4.5-11.0) X10^3/uL RBC 4.28 (4.0-5.2) X10^6/uL Hgb 10.7 L (12.0-16.0) g/dL Hct 32.3 L (36-46) % MCV 75.5 L (80-100) fL MCH 25.1 L (26-34) PG MCHC 33.2 (30-36) % RDW 14.8 (11.6-14.8) % Plt Count 303 (150-400) X10^3/uL Neut % (Auto) 56.0 (50-75) % Lymph % (Auto) 29.3 (25-40) % [place] % (Auto) 11.7 (3-14) % Eos % (Auto) 2.6 (2-4) % Baso % (Auto) 0.4 (0-2) % Neut # (Auto) 2400 (1486-7317) /uL Lymph # (Auto) 1200 (4081-7560) /uL [place] # (Auto) 500 (0-900) /uL Eos # (Auto) 100 (0-450) /uL Baso # (Auto) 0 (0-100) /uL Sodium 136 L (137-145) mmol/L Potassium 3.3 L (3.4-5.1) mmol/L Chloride 101 (98-107) mmol/L Carbon Dioxide 25 (22-32) mmol/L BUN 8 (7-17) mg/dL Creatinine 0.47 L (0.52-1.04) mg/dL Estimated GFR > 60 (>60) mL/min BUN/Creatinine Ratio 17.0 (6-22) Glucose 91 (70-100) mg/dL Calcium 9.1 (8.4-10.2) mg/dL Total Bilirubin 0.8 (0.2-1.3) mg/dL AST 26 (14-36) IU/L ALT 12 (<35) IU/L Alkaline Phosphatase 71 (38-126) U/L Total Protein 8.4 H (6.3-8.2) g/dL Albumin 4.4 (3.5-5.0) g/dL Globulin 4.0 (1.7-4.1) g/dL Albumin/Globulin Ratio 1.1 (1.0-2.8) SARS-CoV-2 (PCR) Negative (Negative) Influenza A (RT-PCR) Flu a negative (NEGATIVE) Influenza B (RT-PCR) Flu b positive H (NEGATIVE) RSV (PCR) Negative (Negative) Imaging Data Chest x-ray: Radiologist's Impression: PROCEDURE: XR CHEST 1V INDICATIONS: COUGH, FEVER X 1 WK TECHNIQUE: One view of the chest was acquired. COMPARISON: [facility], CR, XR CHEST 1V, 01/14/2023, 13:00. FINDINGS: Surgical changes and devices: None. Lungs and pleura: Lungs are clear. No pleural effusions or pneumothorax. Mediastinum: Mediastinal contours appear normal. Heart size is normal. Bones and chest wall: No suspicious bony lesions. Overlying soft tissues appear unremarkable. IMPRESSION: No acute pulmonary process. Dictated by: Arelis Benedict M.D. on 12/28/2023 at 23:55 Approved by: Arelis Benedict M.D. on 12/28/2023 at 23:55 MDM Narrative Medical decision making narrative: Well-appearing patient with persistent symptoms consistent with viral syndrome. Afebrile on arrival. Due to symptoms ongoing for 1 week we will order labs and chest x-ray for evaluation. Rash appears urticarial and likely allergic. Benadryl ordered for symptoms Laboratory work shows WBC count 4.3, hemoglobin 10.7, platelets 303. Patient was seen on 12/10/2023 for bleeding after an elective and was taken to the OR for suction D and C for retained products of conception. Her anemia is improving from previous (9.4). Other labs show sodium 136, potassium 3.3, creatinine 0.47, normal liver enzymes. Chest x-ray negative for acute findings. Patient tested positive for influenza B. she was not a candidate for Tamiflu due to duration of symptoms. Zofran sent to pharmacy of choice, counseled to take Benadryl as needed for symptoms and to follow up with primary care physician. Note for work provided Discharge Plan Departure Patient Disposition: Home Clinical Impression: Influenza B Instructions: DI for Influenza -- Adult Activity Restrictions/Additional Instructions: Your laboratory work today was reassuring. You did test positive for influenza B. take Tylenol and ibuprofen as needed for fever, and you may take Zofran for nausea. Take benadryl for the rash on your arms and follow up with a primary care doctor Prescriptions: New ondansetron 4 mg tablet,disintegrating 4 mg PO Q8H PRN (Reason: nausea and vomiting) Qty: 30 0RF No Action (DME) lancets 30 gauge misc See Rx Instructions .Route Qty: 100 3RF Rx Instructions: test blood sugar once daily. (DME) blood-glucose meter Kit See Rx Instructions .Route Qty: 1 0RF Rx Instructions: use to test blood sugar once daily (DME) Blood Glucose Test Strip See Rx Instructions .Route Qty: 50 6RF Rx Instructions: use to test blood sugar once daily esomeprazole magnesium [Nexium] 20 mg capsule,delayed release(DR/EC) 20 mg PO DAILY Qty: 90 1RF Vitamin 27 mg iron- 800 mcg tablet 1 tab PO DAILY Qty: 100 3RF Referrals: Tyrone Haley ARNP [Primary Care Provider] - Stand Alone Forms: Patient Portal/API, Work Release Note
[2023-12-28] MEDS: DEXAMETHASONE 10 MG/ML VIAL IV (23:21)
[2023-12-28] MEDS: diphenhydrAMINE 50 MG/ML VIAL IV (23:21)
[2023-12-28 23:39] LABS: Add Manual Diff / Slide Review NO; Basophils Absolute Auto 0 /uL (0-100); Basophils Percent Auto 0.4 % (0-2); Eosinophils Absolute Auto 100 /uL (0-450); Eosinophils Percent Auto 2.6 % (2-4); Hematocrit 32.3 % (36-46); Hemoglobin 10.7 g/dL (12.0-16.0); Lymphocytes Absolute Auto 1200 /uL (1100-4500); Lymphocytes Percent Auto 29.3 % (25-40); Mean Corpuscular HGB Conc 33.2 % (30-36); Mean Corpuscular Hemoglobin 25.1 PG (26-34); Mean Corpuscular Volume 75.5 fL (80-100); Monocytes Absolute Auto 500 /uL (0-900); Monocytes Percent Auto 11.7 % (3-14); Neutrophils Absolute Auto 2400 /uL (1500-7000); Platelet Count 303 X10^3/uL (150-400); Red Blood Cell Count 4.28 X10^6/uL (4.0-5.2); Red Cell Distribution Width 14.8 % (11.6-14.8); White Blood Cell Count 4.3 X10^3/uL (4.5-11.0)
[2023-12-28 23:52] VITALS: BP 109/59; PULSE 116; O2SAT 98
[2023-12-28 23:54] LABS: Alanine Aminotransferase 12 IU/L (<35); Albumin 4.4 g/dL (3.5-5.0); Albumin Globulin Ratio 1.1 (1.0-2.8); Alkaline Phosphatase 71 U/L (38-126); Aspartate Aminotransferase 26 IU/L (14-36); Bilirubin Total 0.8 mg/dL (0.2-1.3); Blood Urea Nitrogen 8 mg/dL (7-17); Calcium 9.1 mg/dL (8.4-10.2); Carbon Dioxide 25 mmol/L (22-32); Chloride 101 mmol/L (98-107); Estimated Glomerular Filt Rate > 60 mL/min (>60); Glucose 91 mg/dL (70-100); HEMOLYSIS 27 (0-50); Potassium 3.3 mmol/L (3.4-5.1); Sodium 136 mmol/L (137-145); Total Protein 8.4 g/dL (6.3-8.2)
[2023-12-29 00:37] VITALS: BP 101/69; PULSE 102; RESP 18; O2SAT 98
== END 2023-12-29 00:38 | disposition home or self-care (01) ==
PROVIDERS: Emergency Provider Emergency Medicine; PCP Registered Nurse Diabetes Educator
DX: J10.1 Influenza due to other identified influenza virus with other respiratory manifestations (principal); R21 Rash and other nonspecific skin eruption; Z87.891 Personal history of nicotine dependence
CPT/HCPCS: 0241U; 71045; 80053; 85025; 96374; 96375; 99283; 99284; J1100; J1200

== ENCOUNTER 2024-01-04 04:15 | Emergency (ER) | payer OTHER, SELFPAY ==
[2024-01-04 04:23] VITALS: BMI 28.3
--- NOTE | 2024-01-04 04:25 | ED.GENADULT ---
HPI - General Adult General Chief complaint: Eye Problems Stated complaint: swollen eyes Time Seen by Provider: 01/04/24 04:17 Source: patient Mode of arrival: Ambulatory Limitations: no limitations History of Present Illness HPI narrative: 38-year-old female. Recently diagnosed with influenza B. Is here for evaluation of less than 12 hours of bilateral redness and drainage. She does wear corrective lenses. No fevers. She is still having URI symptoms that are consistent with the flu. No foreign body sensation. Related Data Previous Rx's Medication Instructions Recorded blood sugar diagnostic (Blood #50 ea 01/15/22 Glucose Test strips) blood-glucose meter #1 ea 01/15/22 lancets 30 gauge #100 ea 01/15/22 esomeprazole magnesium 20 mg 20 mg PO DAILY #90 caps 08/15/23 capsule,delayed release (Nexium) vits no.130-ferrous fum 1 tab PO DAILY #100 tabs 10/28/23 27 mg iron-folic acid 800 mcg tablet ( Vitamin) ondansetron 4 mg disintegrating 4 mg PO Q8H PRN nausea and 12/29/23 tablet vomiting #30 tabs erythromycin 5 mg/gram (0.5 %) eye 0.5 inch EYE-BOTH QID 5 days #3.5 01/04/24 ointment grams Allergies Allergy/AdvReac Type Severity Reaction Status Date / Time No Known Drug Allergies Allergy Verified 12/28/23 19:54 Review of Systems Constitutional Constitutional: Reports system reviewed and no additional complaints, except as documented Eyes Eyes: Reports system reviewed and no additional complaints, except as documented ENT Ears, Nose, Mouth, and Throat: Reports system reviewed and no additional complaints, except as documented Integumentary/Breasts Skin/Breast: Reports system reviewed and no additional complaints, except as documented Patient History Medical History Dyslipidemia Diabetes type 2, uncontrolled Elevated serum protein level (11/2020) Fatigue Microcytosis (10/2019) Fatty liver Pelvic pain (10/2020) Vaginal odor Type 2 diabetes mellitus (09/2019) Elevated liver function tests (09/2019) Elevated fasting blood sugar (09/2019) Mixed hyperlipidemia (09/2019) Chronic left hip pain Insomnia BMI 37.0-37.9, adult Anxiety Depression GERD (gastroesophageal reflux disease) (2008) Surgical History Status post LEEP (loop electrosurgical excision procedure) of cervix (~01/2020) Family History Unknown Uterus cancer Social History household members: friend(s) Smoking Status: Former smoker second hand exposure: No alcohol intake: never substance use type: does not use Smoking Status: Former smoker alcohol intake frequency: holidays/special occasions only Substance Use Type: does not use Exam HENMT Nose: other (Sinus congestion) Eyes Other: Patient with conjunctiva that is inflamed. Does have what appears to be purulent material from the left eye. Pupils are equal round and reactive. No foreign body. Course Orders Ordered: Discontinued Medications Erythromycin (Erythromycin Ophth 1 Gm Oint) 1 applic EYE-BOTH NOW ONE Stop: 01/04/24 04:31 Medical Decision Making [facility] Narrative Medical decision making narrative: History and physical exam is consistent with conjunctivitis. Was recently diagnosed with influenza that very well could be the cause of her symptoms however she does have what appears to be purulent material from the left eye. Will treat with antibiotic ointment. First dose was given here in the emergency department and prescription was sent to the pharmacy of her choice. She was given return precautions. She expressed understanding and agreement. Discharge Plan Departure Patient Disposition: Home Clinical Impression: Conjunctivitis Instructions: Conjunctivitis Activity Restrictions/Additional Instructions: Use the antibiotic ointment as directed. Contact your primary doctor for follow-up. Return to the emergency department for new symptoms. Prescriptions: New erythromycin 5 mg/gram (0.5 %) ointment 0.5 inch EYE-BOTH QID 5 Days Qty: 3.5 2RF No Action (DME) lancets 30 gauge misc See Rx Instructions .Route Qty: 100 3RF Rx Instructions: test blood sugar once daily. (DME) blood-glucose meter Kit See Rx Instructions .Route Qty: 1 0RF Rx Instructions: use to test blood sugar once daily (DME) Blood Glucose Test Strip See Rx Instructions .Route Qty: 50 6RF Rx Instructions: use to test blood sugar once daily esomeprazole magnesium [Nexium] 20 mg capsule,delayed release(DR/EC) 20 mg PO DAILY Qty: 90 1RF Vitamin 27 mg iron- 800 mcg tablet 1 tab PO DAILY Qty: 100 3RF ondansetron 4 mg tablet,disintegrating 4 mg PO Q8H PRN (Reason: nausea and vomiting) Qty: 30 0RF Referrals: Tyrone Haley ARNP [Primary Care Provider] - Stand Alone Forms: Patient Portal/API, Work Release Note
[2024-01-04] MEDS: ERYTHROMYCIN OPHTH 1 GM OINT 1 APPLIC EYE-BOTH (04:31)
[2024-01-04 04:32] VITALS: BP 128/65; PULSE 82; RESP 20; TEMP 36.7; O2SAT 99
== END 2024-01-04 04:40 | disposition home or self-care (01) ==
PROVIDERS: Emergency Provider Emergency Medicine; PCP Registered Nurse Diabetes Educator
DX: H10.9 Unspecified conjunctivitis (principal)
CPT/HCPCS: 99282; 99283

== ENCOUNTER → 2024-01-08 13:31 | Outpatient (CLI) | payer OTHER, SELFPAY | PROVIDERS: PCP Registered Nurse Diabetes Educator; Visit Provider Nurse Practitioner Family | DX: J02.9 Acute pharyngitis, unspecified (principal) | CPT/HCPCS: 87070 ==

== ENCOUNTER → 2024-01-08 13:53 | Outpatient (CLI) | payer OTHER, SELFPAY ==
--- NOTE | 2024-01-08 13:55 | DI.RAD.S_ITS ---
PROCEDURE: XR CHEST 2V INDICATIONS: Cough TECHNIQUE: 2 views of the chest were acquired. COMPARISON: [facility], CR, XR CHEST 1V, 12/28/2023, 23:27. FINDINGS: Surgical changes and devices: None. Lungs and pleura: Lungs are clear. No pleural effusions or pneumothorax. Mediastinum: Mediastinal contours are normal. Heart size is normal. Bones and chest wall: No suspicious bony abnormalities. Soft tissues appear unremarkable. IMPRESSION: No acute cardiopulmonary abnormality is seen. Approved by: Tye Mancini M.D. on 01/08/2024 at 15:34
== END ==
PROVIDERS: PCP Registered Nurse Diabetes Educator; Referring Provider Nurse Practitioner Family; Visit Provider Nurse Practitioner Family
DX: R05.9 Cough, unspecified (principal)
CPT/HCPCS: 71046; 87070